=== PATIENT | female | born 1935 | race Caucasian/White ===

== ENCOUNTER 2017-10-29 16:28 | Emergency (ER) | payer OTHER, MEDICARE ==
[~2017-10-29] VITALS: Ht 162.6 cm; Wt 63.5 kg
[~2017-10-29 16:28] MED LIST: ALPRAZOLAM0.25 M1 PO; AMLODIPINE BESYL5 M1 PO; ATORVASTATIN CA20 MG PO; COREG12.5 M1 PO; COZAAR50 M1 PO; HYDRALAZINE HCL25 M1 PO; HYDRALAZINE HCL25 MG PO; HYDRALAZINE10 MG PO; LOSARTAN POTASS50 MG PO; METOPROLOL SUC100 M1 PO; MIRALAX17 G1 PO; ONDANSETRON ODT4 M1 PO; PROTONIX 40MG T40 MG PO; PROTONIX40 M3 PO; SODIUM CHLORIDE1 G2 PO; TIGAN100 MG/1 M PO
--- NOTE | 2017-10-29 16:53 | ED GENERAL ADULT ---
History of Present Illness General Chief Complaint: Dyspnea (COPD, CHF, Other) Stated Complaint: BIBA SOB/ANXIOUS Source: patient Exam Limitations: no limitations Vital Signs & Intake/Output Vital Signs & Intake/Output Vital Signs Date Time Temp Pulse Resp B/P B/P Pulse O2 O2 Flow FiO2 Mean Ox Delivery Rate 10/29 2127 97.2 62 20 167/62 97 Room Air 10/29 1927 97.8 60 20 174/74 97 Room Air 10/29 1829 97.7 60 16 180/84 97 Room Air 10/29 1630 97.9 59 18 169/83 97 Room Air Allergies Coded Allergies: No Known Allergies (04/04/16) Reconcile Medications Albuterol Sulfate (Ventolin Hfa) 90 MCG HFA.AER.AD 2 PUF INH Q4-6 PRN PRN SHORTNESS OF BREATH Alprazolam 0.25 MG TABLET 1 TAB PO DAILY NEEDED PRN ANXIETY (Reported) Amlodipine Besylate 5 MG TABLET 5 MG PO DAILY HTN Atorvastatin Calcium (Lipitor) 20 MG TAB 1 TAB PO DAILY CHOLESTEROL (Reported ) Azithromycin (Zithromax) 500 MG TABLET 1 TAB PO DAILY BRONCHITIS Benzonatate (Tessalon Perle) 100 MG CAPSULE 1 CAP PO TID PRN COUGH Fluticasone Propionate (Flonase Allergy Relief) 50 MCG/ACTUATION SPRAY.SUSP 2 SPRAY KARLA DAILY PRN CONGESTION Hydralazine HCl 25 MG TABLET 1 TAB PO BID HEART (Reported) Metoprolol Succinate (Metoprolol Succinate XL) [address] 1 TAB PO DAILY HEART (Reported) Pantoprazole Sodium (Protonix) 40 MG TAB 40 MG PO DAILY ACID REFLUX (Reported ) Polyethylene Glycol 3350 (Miralax) 17 GM POWD.PACK 1 PAC PO DAILY PRN CONSTIPATION dissolve in water Sodium Chloride 1 GM TABLET 1,000 MG PO BID Hyponatremia Review the Na level and consider to stop or continue depending on the level. While on the NaCl tablet BP needs to be monitored closely. Triage Note: PT BIBA FROM HOME C/C URI S/S AND "A FEW SECONDS" OF SOB. HX OF ANXIETY, STATES FELT SIMILAR. PATIENT SOUND CONGESTED. AFEBRILE. ADMITS SOME SUBJECTIVE CHILLS Triage Nurses Notes Reviewed? yes Onset: Gradual Duration: getting worse Timing: recent history Injury Environment: home Severity: moderate Severity Numbers: 5 HPI: Patient is an 82-year-old female with a past medical history of hypertension hyperlipidemia status post atrioventricular dual pacemaker, diverticulitis status post colostomy approximately 4 years ago, ovarian cancer status post surgical removal and chemotherapy at age 29, hyponatremia who presents emergency room brought in by ambulance for concerns of a four-day history of cough congestion and upper respiratory cold like symptoms however today symptoms worsen to where she began having shortness of breath approximately at 1300 while at rest patient then became excessively anxious symptoms do not resolve patient called EMS Patient denies any fevers chest pain arm pain jaw pain Complains of "upset stomach" denies any specific nausea or vomiting denies any leg swelling hemoptysis Brown productive cough noted (Aiden Brito) Past History Travel History Traveled to [place] past 21 day No Medical History Any Pertinent Medical History? 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 HYSTERECTOMY Psychosocial History Who do you live with Spouse Services at Home None What is your primary language Eritrean Tobacco Use: Quit >30 days ago Family History Family History, If Any: SISTER FH: cancer Hx Contributory? No (Aiden Brito) Review of Systems Review of Systems Constitutional: Reports: see HPI. Denies: chills, fever. EENTM: Reports: no symptoms, see HPI. Respiratory: Reports: see HPI, cough, short of breath, sputum production. Cardiovascular: Reports: see HPI. Denies: chest pain. GI: Reports: see HPI. Denies: abdominal pain. Genitourinary: Reports: no symptoms. Musculoskeletal: Reports: no symptoms. Skin: Reports: no symptoms. Neurological/Psychological: Reports: no symptoms. Hematologic/Endocrine: Reports: no symptoms. Immunologic/Allergic: Reports: no symptoms. All Other Systems: Reviewed and Negative (Aiden Brito) Physical Exam Physical Exam General Appearance: no apparent distress, alert, comfortable Head: atraumatic Eyes: Bilateral: normal appearance, PERRL, EOMI. Ears, Nose, Throat: normal pharynx, normal ENT inspection, hearing grossly normal Neck: normal inspection, supple Respiratory: normal breath sounds, chest non-tender, no respiratory distress Cardiovascular: regular rate/rhythm Peripheral Pulses: 2+ radial (R) Gastrointestinal: normal bowel sounds, soft, non-tender Back: normal inspection Extremities: normal inspection, normal capillary refill, normal range of motion, no edema Skin: intact Comments: Patient has scattered multiple patchy erythematous DRY scaly skin rashes to lower extremity back and abdomen Core Measures ACS in differential dx? Yes CVA/TIA Diagnosis: No Sepsis Present: No Sepsis Focused Exam Completed? No (Bonnie MALIK,Aiden) Progress Differential Diagnoses I considered the following diagnoses in my evaluation of the patient: [Pulmonary embolism influenza URI bronchitis pneumonia MII sepsis tinea corporis] Plan of Care: Orders Procedure Date/time Status TROPONIN LEVEL 10/29 2129 Complete EKG 10/29 2129 Active URINALYSIS 10/29 170 Complete LOWER RESPIRATORY CULTURE 10/29 1705 Active BLOOD CULTURE 10/29 170 Active TROPONIN LEVEL 10/29 1705 Complete LACTIC ACID 10/29 1705 Complete D-DIMER 10/29 1705 Complete COMPREHENSIVE METABOLIC PANEL 10/29 1705 Complete CBC WITHOUT DIFFERENTIAL 10/29 170 Complete B-TYPE NATRIURETIC PEP (BNP) 10/29 1705 Complete EKG 10/29 170 Active RAPID VIRAL INFLUENZA A 10/29 170 Complete Laboratory Tests 10/29/173: Troponin I < 0.01 10/29/17 2005: Lactic Acid Cancelled 10/29/17 1843: Urine Color YEL, Urine Clarity CLEAR, Urine pH 6.0, Ur Specific [place] 1.015, Urine Protein NEG, Urine Ketones NEG, Urine Nitrite NEG, Urine Bilirubin NEG, Urine Urobilinogen 0.2, Ur Leukocyte Esterase NEG, Ur Microscopic EXAM NOT REQUIRED, Urine Hemoglobin NEG, Urine Glucose NEG 10/29/17 1720: Anion Gap 11, Estimated GFR 43 L, BUN/Creatinine Ratio 10.0, Glucose 125 H, Lactic Acid 1.5, Calcium 10.0, Total Bilirubin 0.4, AST 17, ALT 21, Alkaline Phosphatase 98, Troponin I < 0.01, Oqb-B-Aibvyohzdjv Pept 3270 H, Total Protein 6.1 L, Albumin 3.2 L, Globulin 2.9, Albumin/Globulin Ratio 1.1, D-Dimer High Sensitivty 539 H, CBC w Diff NO MAN DIFF REQ, RBC 3.77 L, MCV 87.1, MCH 28.5, MCHC 32.7 L, RDW 15.6 H, MPV 6.9 L, Gran % 83.5 H, Lymphocytes % 11.4 L, Monocytes % 4.6, Eosinophils % 0.3, Basophils % 0.2, Absolute Granulocytes 8.9 H, Absolute Lymphocytes 1.2, Absolute Monocytes 0.5, Absolute Eosinophils 0, Absolute Basophils 0 Microbiology 10/29 1735 BLOOD: Blood Culture - RECD 10/29 1720 BLOOD: Blood Culture - RECD 10/29 1717 NASOPHARYN: Influenza Virus A & B Rapid Smear - COMP 10/29 1704 LOWER RESP: Respiratory Culture - ORD 10/29 1704 LOWER RESP: Gram Stain - ORD Patient on initial examination was resting comfortably but clear lungs auscultation Afebrile nontoxic-appearing Patient has concerns of skin findings of generalized lower extremity and trunk of tinea in which liver function tests were unremarkable patient was given one time dose of Diflucan 2000= Patient will receive second set troponin at 2130, IST set of EKG and troponin unremarkable CT scan angiogram currently is pending for evaluation and rule out PE DISCUSSED HAND OFF WITH DR SAHU Initial ED EK A-V PACED RHYTHM Hand-Off Endorsed To: Valerie KING,Jackson Woodward Endorsed Time: 2015 Pending: CT, labs (Bonnie MALIK,Aiden) Diagnostic Imaging: Viewed by Me: CT Scan. Discussed w/RAD: CT Scan. Radiology Impression: PATIENT: RO AVILA PRESENT AGE: 82 PATIENT ACCOUNT NO: [id number] : 34 LOCATION: [facility] ORDERING PHYSICIAN: Aiden MALIK SERVICE DATE: 10/29/17 EXAM TYPE: CAT - CTA CHEST-PULMONARY EMBOLISM EXAMINATION: CT ANGIOGRAM OF THE CHEST WITH AND WITHOUT CONTRAST (CT PULMONARY ANGIOGRAM FOR PE) CLINICAL INFORMATION: Reason for Study:
Presumptive Dx: SOB, ELEVATED DIMER
Signs Symptoms: RM 8
COMPARISON : Same day chest x-ray TECHNIQUE: Prior to contrast administration, noncontrast localization images were obtained. Subsequently, multidetector volumetric imaging was performed from the thoracic inlet to below the diaphragms following the administration of 75 mL Omnipaque 350 intravenous contrast. No contrast reaction reported. Sagittal, coronal, and MIP oblique sagittal reformatted images were obtained on the CT workstation, uploaded to PACS, and reviewed. Total exam dose-length product 332 mGy-cm. FINDINGS: QUALITY OF STUDY/CONTRAST BOLUS: Satisfactory PULMONARY ARTERIES: No central or segmental pulmonary emboli. THORACIC AORTA: The ascending thoracic aorta measures approximately 3.2 x 3.4 cm. The descending thoracic aorta at this level measures 2.3 x 2.6 cm. No dissection. LUNG: No focal consolidation, nodules or masses. Minimal dependent atelectasis. PLEURA: No pleural effusion or pneumothorax. MEDIASTINUM: The heart size is top normal to mildly enlarged. There is no pericardial effusion. Mild coronary artery calcification noted. There are enlarged mediastinal lymph nodes. An AP window lymph node measures 1.6 x 2.8 cm. A precarinal lymph node measures 1.5 x 2.1 cm. No evidence of septal bowing or right heart strain. CHEST WALL/ AXILLA: No axillary or internal mammary lymphadenopathy. OSSEOUS STRUCTURES: No acute or suspicious osseous abnormality. UPPER ABDOMEN: A small cystic structure is identified within the left lobe of the liver measuring 1.1 cm. No reflux of contrast into the hepatic veins to suggest elevated right heart pressures. IMPRESSION: 1. No pulmonary embolism. 2. No pneumonia or other acute intrapulmonary findings. Bibasilar atelectasis. 3. Abnormal mediastinal adenopathy. In addition to reactive adenopathy other etiologies such as inflammatory or malignant (lymphoma) causes could be considered. VTE: negative DICTATED BY: Phoebe Wolfe MD DATE/TIME DICTATED:10/29/172038 BAG MAKING MACHINE OPERATOR :KIKE DATE/TIME TRANSCRIBED:10/29/172038 CONFIDENTIAL, DO NOT COPY WITHOUT APPROPRIATE AUTHORIZATION. <Electronically signed in Other Vendor System> SIGNED BY: Phoebe Wolfe MD 10/29/172051 Repeat EKG: unchanged (Valerie KING,Jackson Woodward) Departure Departure Disposition: STILL A PATIENT Condition: Stable Clinical Impression Primary Impression: URI (upper respiratory infection) Secondary Impressions: Shortness of breath, Tinea Referrals: Essie KING,Martha Brink (PCP/Family) Additional Instructions: As discussed if symptoms worsen return to emergency room, Follow-up with your primary care doctor in 2 days if no better. Begin the prescription of azithromycin for the full course tests on process or cough Flonase for nasal congestion and a Ventolin inhaler for shortness of breath. PRESCRIPTIONS WAITING AT [facility] Departure Forms: Customer Survey General Discharge Information Prescriptions: Current Visit Scripts Azithromycin (Zithromax) 1 TAB PO DAILY #5 TAB Albuterol Sulfate (Ventolin Hfa) 2 PUF INH Q4-6 PRN PRN SHORTNESS OF BREATH #1 INHAL Benzonatate (Tessalon Perle) 1 CAP PO TID PRN COUGH #12 CAP Fluticasone Propionate (Flonase Allergy Relief) 2 SPRAY KARLA DAILY PRN CONGESTION #1 BOT (Aiden Brito) PA/GROUND NUCLEAR WEAPONS ASSEMBLY OFFICER Co-Sign Statement Statement: ED Attending supervision documentation- [X] I saw and evaluated the patient. I have also reviewed all the pertinent lab results and diagnostic results. I agree with the findings and the plan of care as documented in the PA's/GROUND NUCLEAR WEAPONS ASSEMBLY OFFICER's documentation. [X] I have reviewed the ED Record and agree with the PA's/GROUND NUCLEAR WEAPONS ASSEMBLY OFFICER's documentation. [] Additions or exceptions (if any) to the PAs/GROUND NUCLEAR WEAPONS ASSEMBLY OFFICER's note and plan are summarized below: [] (Valerie KING,Jackson Woodward) Critical Care Note Critical Care Note Critical Care Time: non-applicable (Aiden Brito)
[2017-10-29 17:50] LABS: ABSOLUTE BASOPHIL COUNT 0 /CUMM (0.0-0.2); ABSOLUTE EOSINOPHIL COUNT 0 /CUMM (0.0-0.7); ABSOLUTE GRANULOCYTE CT 8.9 /CUMM (1.4-6.5); ABSOLUTE LYMPH COUNT 1.2 /CUMM (1.2-3.4); ABSOLUTE MONOCYTE COUNT 0.5 /CUMM (0.10-0.60); BASOPHIL % 0.2 % (0.0-2.0); EOSINOPHIL % 0.3 % (0-5); GRANULOCYTE % 83.5 % (42.2-75.2); HEMATOCRIT 32.8 % (37-47); MEAN CORPUSCULAR HGB 28.5 PG (27.0-31.0); MEAN CORPUSCULAR HGB CONC 32.7 G/DL (33.0-37.0); MEAN CORPUSCULAR VOLUME 87.1 FL (81.0-99.0); MEAN PLATELET VOLUME 6.9 FL (7.4-10.4); PLATELET COUNT 369 /CUMM (130-400); RBC DISTRIBUTION WIDTH 15.6 % (11.5-14.5); RED BLOOD CELL CT 3.77 /CUMM (4.20-5.40)
[2017-10-29 18:03] LABS: WHITE BLOOD CELL COUNT 10.6 /CUMM (4.8-10.8)
[2017-10-29] MEDS ORDERED: ZITHROMAX500 M2 PO (20:15)
[2017-10-29] MEDS ORDERED: FLONASE ALLERG9.9 ML NAS (20:15)
[2017-10-29] MEDS ORDERED: TESSALON PERLE100 M1 PO (20:15)
[2017-10-29] MEDS ORDERED: VENTOLIN HFA18 GM INH (20:15)
--- NOTE | 2017-10-29 20:52 | CT SCAN REPORT ---
EXAMINATION: CT ANGIOGRAM OF THE CHEST WITH AND WITHOUT CONTRAST (CT PULMONARY ANGIOGRAM FOR PE) CLINICAL INFORMATION: Reason for Study:
Presumptive Dx: SOB, ELEVATED DIMER
Signs Symptoms: RM 8
COMPARISON: Same day chest x-ray TECHNIQUE: Prior to contrast administration, noncontrast localization images were obtained. Subsequently, multidetector volumetric imaging was performed from the thoracic inlet to below the diaphragms following the administration of 75 mL Omnipaque 350 intravenous contrast. No contrast reaction reported. Sagittal, coronal, and MIP oblique sagittal reformatted images were obtained on the CT workstation, uploaded to PACS, and reviewed. Total exam dose-length product 332 mGy-cm. FINDINGS: QUALITY OF STUDY/CONTRAST BOLUS: Satisfactory PULMONARY ARTERIES: No central or segmental pulmonary emboli. THORACIC AORTA: The ascending thoracic aorta measures approximately 3.2 x 3.4 cm. The descending thoracic aorta at this level measures 2.3 x 2.6 cm. No dissection. LUNG: No focal consolidation, nodules or masses. Minimal dependent atelectasis. PLEURA: No pleural effusion or pneumothorax. MEDIASTINUM: The heart size is top normal to mildly enlarged. There is no pericardial effusion. Mild coronary artery calcification noted. There are enlarged mediastinal lymph nodes. An AP window lymph node measures 1.6 x 2.8 cm. A precarinal lymph node measures 1.5 x 2.1 cm. No evidence of septal bowing or right heart strain. CHEST WALL/AXILLA: No axillary or internal mammary lymphadenopathy. OSSEOUS STRUCTURES: No acute or suspicious osseous abnormality. UPPER ABDOMEN: A small cystic structure is identified within the left lobe of the liver measuring 1.1 cm. No reflux of contrast into the hepatic veins to suggest elevated right heart pressures. IMPRESSION: 1. No pulmonary embolism. 2. No pneumonia or other acute intrapulmonary findings. Bibasilar atelectasis. 3. Abnormal mediastinal adenopathy. In addition to reactive adenopathy other etiologies such as inflammatory or malignant (lymphoma) causes could be considered. VTE: negative
[2017-10-29 23:10] VITALS: BP 145/63
== END 2017-10-29 23:11 ==
LOC: ERH 16:28
PROVIDERS: Physician Assistant
DX: J06.9 Acute upper respiratory infection, unspecified (principal); B35.9 Dermatophytosis, unspecified
CPT/HCPCS: 81003; 87040; 87070; 87804; 87804-59; 93005; 93010; J7040

== ENCOUNTER 2017-11-03 09:10 | Inpatient (IN) | payer OTHER, MEDICARE ==
[~2017-11-03] VITALS: Ht 162.6 cm; Wt 70.9 kg
[~2017-11-03 09:10] MED LIST changes: -ATORVASTATIN CA20 MG PO; +FLONASE ALLERG9.9 ML NAS; +LIPITOR20 M2 PO; -METOPROLOL SUC100 M1 PO; +METOPROLOL SUC100 M2 PO; -PROTONIX 40MG T40 MG PO; +TESSALON PERLE100 M1 PO; +VENTOLIN HFA18 GM INH; +ZITHROMAX500 M2 PO
--- NOTE | 2017-11-03 09:31 | ED GENERAL ADULT ---
History of Present Illness General Chief Complaint: General Adult Stated Complaint: WEAKNESS/DIZZINESS Source: patient, family, old records, EMS Exam Limitations: no limitations Vital Signs & Intake/Output Vital Signs & Intake/Output Vital Signs Date Time Temp Pulse Resp B/P B/P Pulse O2 O2 Flow FiO2 Mean Ox Delivery Rate 11/03 1149 97.2 60 18 160/82 98 11/03 1138 Room Air Room Air 11/03 0933 95.8 78 20 158/80 97 Room Air Allergies Coded Allergies: No Known Allergies (04/04/16) Reconcile Medications Amlodipine Besylate 5 MG TABLET 5 MG PO DAILY HTN Apixaban (Eliquis) 5 MG TABLET 1 TAB PO BID BLOOD THINNER (Reported) Atorvastatin Calcium (Lipitor) 20 MG TABLET 1 TAB PO QPM CHOLESTEROL ( Reported) Hydralazine HCl 25 MG TABLET 1 TAB PO BID HEART (Reported) Losartan Potassium 50 MG TABLET 1 TAB PO DAILY HEART (Reported) Metoprolol Succinate 100 MG TAB.ER.24H 1 TAB PO DAILY HEART (Reported) Pantoprazole Sodium (Protonix) 40 MG TABLET.DR 1 TAB PO DAILY ACID REFLUX ( Reported) Triage Nurses Notes Reviewed? yes HPI: Patient presents with increasing weakness, fatigue and anorexia. Patient was seen last week for similar complaints. At that time her workup was negative and the patient felt stable going home. Patient states that her symptoms have been worsening over the past few days. Patient denies any chest pain or shortness of breath. She denies any dyspnea on exertion. There is no orthopnea. There is no nausea or vomiting. She states that she just has no desire to eat. She denies any fevers or chills. There is no dysuria or hematuria. There is no urinary frequency. Past History Medical History Any Pertinent Medical History? 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 HYSTERECTOMY Psychosocial History Who do you live with Spouse Services at Home None What is your primary language Macedonian Tobacco Use: Never used ETOH Use: denies use Illicit Drug Use: denies illicit drug use Family History Family History, If Any: SISTER FH: cancer Hx Contributory? No Review of Systems Review of Systems Constitutional: Reports: see HPI, weakness. EENTM: Reports: no symptoms. Respiratory: Reports: no symptoms. Cardiovascular: Reports: no symptoms. GI: Reports: see HPI. Genitourinary: Reports: no symptoms. Musculoskeletal: Reports: no symptoms. Skin: Reports: no symptoms. Neurological/Psychological: Reports: no symptoms. Hematologic/Endocrine: Reports: no symptoms. Immunologic/Allergic: Reports: no symptoms. All Other Systems: Reviewed and Negative Physical Exam Physical Exam General Appearance: well developed/nourished, alert, awake, anxious, mild distress Head: atraumatic, normal appearance Eyes: Bilateral: PERRL, EOMI. Ears, Nose, Throat: normal pharynx, normal ENT inspection, moist mucus membranes Neck: normal inspection, supple, full range of motion, NO JVD Respiratory: normal breath sounds, chest non-tender, no respiratory distress, lungs clear Cardiovascular: regular rate/rhythm, normal peripheral pulses Gastrointestinal: normal bowel sounds, soft, non-tender, no organomegaly Back: normal inspection, normal range of motion Extremities: normal inspection, normal capillary refill, normal range of motion, no edema Neurologic/Psych: no motor/sensory deficits, awake, alert, oriented x 3, normal mood/affect Skin: intact, normal color, warm/dry Core Measures ACS in differential dx? No CVA/TIA Diagnosis: No Sepsis Present: No Sepsis Focused Exam Completed? No Progress Differential Diagnoses I considered the following diagnoses in my evaluation of the patient: [CHF, AMI, UTI, ELECTROLYTE ABNORMALITY] Plan of Care: Orders Procedure Date/time Status Heart Healthy Diet 11/03 L Complete Heart Healthy Diet 11/03 D Active Patient Data 11/03 1201 Active ED Holding Orders 11/03 1149 Active Admit to inpatient 11/03 1149 Active Vital Signs 11/03 1149 Active Code Status 11/03 1149 Active Intake & Output 11/03 1044 Active Telemetry/Financial Reporting Manager 11/03 0931 Active URINALYSIS 11/03 0931 Complete TROPONIN LEVEL 11/03 0931 Complete COMPREHENSIVE METABOLIC PANEL 11/03 0931 Complete CBC WITHOUT DIFFERENTIAL 11/03 09 Complete B-TYPE NATRIURETIC PEP (BNP) 11/03 0931 Complete EKG 11/03 0913 Active Current Medications Sig/Gildardo Start time Last Medication Dose Stop Time Status Admin Sodium Chloride 1,000 ML ONCE ONE 11/03 1000 AC 11/03 (Normal Saline 0.9%) 11/03 1759 1044 Laboratory Tests 11/03/17 1036: Anion Gap 10, Estimated GFR 43 L, BUN/Creatinine Ratio 10.8, Glucose 105 H, Calcium 10.0, Total Bilirubin 0.4, AST 15, ALT 20, Alkaline Phosphatase 117, Troponin I < 0.01, Ttg-A-Onuxsrslqoi Pept 1690 H, Total Protein 5.9 L, Albumin 3.1 L, Globulin 2.8, Albumin/Globulin Ratio 1.1, CBC w Diff NO MAN DIFF REQ, RBC 3.56 L, MCV 87.2, MCH 29.5, MCHC 33.9, RDW 15.2 H, MPV 6.2 L, Gran % 71.8 , Lymphocytes % 19.4 L, Monocytes % 6.9, Eosinophils % 1.6, Basophils % 0.3, Absolute Granulocytes 5.2, Absolute Lymphocytes 1.4, Absolute Monocytes 0.5, Absolute Eosinophils 0.1, Absolute Basophils 0 11/03/17 0950: Urine Color YEL, Urine Clarity CLEAR, Urine pH 6.5, Ur Specific [place] 1.010, Urine Protein NEG, Urine Ketones NEG, Urine Nitrite NEG, Urine Bilirubin NEG, Urine Urobilinogen 0.2, Ur Leukocyte Esterase NEG, Ur Microscopic EXAM NOT REQUIRED, Urine Hemoglobin NEG, Urine Glucose NEG Diagnostic Imaging: Viewed by Me: Radiology Read. Discussed w/RAD: Radiology Read. CXR Impression: PATIENT: RO AVILA PRESENT AGE: 82 PATIENT ACCOUNT NO: [id number] : 34 LOCATION: [facility] ORDERING PHYSICIAN: Jackson Padilla MD SERVICE DATE: 11/03/17 EXAM TYPE: RAD - XRY- PORTABLE CHEST XRAY EXAMINATION: XR PORTABLE CHEST CLINICAL INFORMATION: Pulmonary edema COMPARISON: 10/25/2017 TECHNIQUE: Portable frontal view of the chest was obtained. FINDINGS: Lung volumes are decreased from the prior study. There is hazy bibasilar opacity, likely atelectasis and superimposed soft tissues. No dense focal consolidation seen. There is bronchovascular crowding but no sammie pulmonary edema. No definite pleural effusion. No pneumothorax. Calcified, tortuous aorta. Normal heart size. There is S-shaped thoracolumbar scoliosis. There are degenerative changes of the bilateral shoulders. IMPRESSION : Low lung volumes with likely bibasilar atelectasis. There is slight prominence of the pulmonary vascularity, most likely bronchovascular crowding in the setting of low lung volumes. At worst there is pulmonary vascular congestion. No pulmonary edema. DICTATED BY: Dudley Leblanc MD DATE/TIME DICTATED:11/03/171026 GEOTECHNICAL FIELD TECHNICIAN:KIKE DATE/TIME TRANSCRIBED:11/03/171026 CONFIDENTIAL, DO NOT COPY WITHOUT APPROPRIATE AUTHORIZATION. <Electronically signed in Other Vendor System> SIGNED BY: Dudley Leblanc MD 11/03/17 1035 Initial ED EKG: pacemaker rhythm Prior EKG: unchanged Comments: Patient attempted to inability to the bathroom in the emergency department. Patient took approximately 2 steps before she lost her balance and almost fell required a max assist back to bed. She has been very high risk to be discharged at this time. Patient will be admitted to the hospital. Departure Departure Disposition: STILL A PATIENT Condition: Stable Clinical Impression Primary Impression: Multifactorial gait disorder Referrals: Essie KING,Martha Brink (PCP/Family) Departure Forms: Customer Survey General Discharge Information Admission Note Spoke With: Kelvin Campos MD Documentation of Exam: Documentation of any treatments & extenuating circumstances including Concerns Regarding Discharge (functional status, medication knowledge or non-compliance, living conditions, etc.) that warrant an admission rather than observation: [ ADMIT, PT EVALUATION AND TREATMENT, GENTLE HYDRATION, WILL MOST LIKELY REQUIRE STR.] Critical Care Note Critical Care Note Critical Care Time: non-applicable
[2017-11-03] MEDS ORDERED: LOSARTAN POTASS50 M1 PO (09:52)
[2017-11-03] MEDS ORDERED: ELIQUIS5 M1 PO (09:52)
--- NOTE | 2017-11-03 10:35 | RADIOLOGY REPORT ---
EXAMINATION: XR PORTABLE CHEST CLINICAL INFORMATION: Pulmonary edema COMPARISON: 10/25/2017 TECHNIQUE: Portable frontal view of the chest was obtained. FINDINGS: Lung volumes are decreased from the prior study. There is hazy bibasilar opacity, likely atelectasis and superimposed soft tissues. No dense focal consolidation seen. There is bronchovascular crowding but no sammie pulmonary edema. No definite pleural effusion. No pneumothorax. Calcified, tortuous aorta. Normal heart size. There is S-shaped thoracolumbar scoliosis. There are degenerative changes of the bilateral shoulders. IMPRESSION: Low lung volumes with likely bibasilar atelectasis. There is slight prominence of the pulmonary vascularity, most likely bronchovascular crowding in the setting of low lung volumes. At worst there is pulmonary vascular congestion. No pulmonary edema.
[2017-11-03 10:43] LABS: ABSOLUTE BASOPHIL COUNT 0 /CUMM (0.0-0.2); ABSOLUTE EOSINOPHIL COUNT 0.1 /CUMM (0.0-0.7); ABSOLUTE GRANULOCYTE CT 5.2 /CUMM (1.4-6.5); ABSOLUTE LYMPH COUNT 1.4 /CUMM (1.2-3.4); ABSOLUTE MONOCYTE COUNT 0.5 /CUMM (0.10-0.60); BASOPHIL % 0.3 % (0.0-2.0); EOSINOPHIL % 1.6 % (0-5); GRANULOCYTE % 71.8 % (42.2-75.2); MEAN CORPUSCULAR HGB 29.5 PG (27.0-31.0); MEAN CORPUSCULAR HGB CONC 33.9 G/DL (33.0-37.0); MEAN CORPUSCULAR VOLUME 87.2 FL (81.0-99.0); MEAN PLATELET VOLUME 6.2 FL (7.4-10.4); PLATELET COUNT 435 /CUMM (130-400); RBC DISTRIBUTION WIDTH 15.2 % (11.5-14.5); RED BLOOD CELL CT 3.56 /CUMM (4.20-5.40); WHITE BLOOD CELL COUNT 7.3 /CUMM (4.8-10.8)
--- NOTE | 2017-11-03 12:12 | History & Physical ---
Иван Barajas 11/03/17 1211: General Information and HPI MD Statement: I have seen and personally examined RO AVILA and documented this H&P. The patient is a 82 year old F who presented with a patient stated chief complaint of [weekness and poor oral intake ]. Source of Information: patient, old records Exam Limitations: no limitations History of Present Illness: Patient is a very pleasant 82-year-old female with history of hypertension, diverticulitis status post colostomy 2 years ago, ovarian cancer status post hysterectomy and chemotherapy at age 49, possible arrhythmia ?? S/P pacemaker placement, who presented at the emergency room after a fall secondary to weakness. Patient came to the emergency room about one week ago with nausea, vomiting, diarrhea and concomitant upper respiratory tract symptoms; stayed in ED for few hours and after fluid resuscitation was discharged home. According to patient her nausea and diarrhea improved, but she was left with constant bloating loss of appetite and poor oral intake for the past 10 days. for the past 3 days she felt weak, gait instability; had an episode of fall secondary to weakness this a.m.; denies any head trauma, loss of consciousness, chest pain, palpitation, +/- dizziness and feeling that she is going to pass out before fall. Lives alone; walking independently; takes care of herself independent. Compliant with her medication. Allergies/Medications Allergies: Coded Allergies: No Known Allergies (04/04/16) Home Med list Amlodipine Besylate 5 MG TABLET 5 MG PO DAILY HTN Apixaban (Eliquis) 5 MG TABLET 1 TAB PO BID BLOOD THINNER (Reported) Atorvastatin Calcium (Lipitor) 20 MG TABLET 1 TAB PO QPM CHOLESTEROL ( Reported) Hydralazine HCl 25 MG TABLET 1 TAB PO BID HEART (Reported) Losartan Potassium 50 MG TABLET 1 TAB PO DAILY HEART (Reported) Metoprolol Succinate 100 MG TAB.ER.24H 1 TAB PO DAILY HEART (Reported) Pantoprazole Sodium (Protonix) 40 MG TABLET.DR 1 TAB PO DAILY ACID REFLUX ( Reported) Compliance With Home Meds: GOOD Past History Travel History Traveled to [place] past 21 day No Medical History Neurological: NONE EENT: NONE Cardiovascular: hypertension, HLD atrial-ventricular dual pacemaker Respiratory: pneumonia Gastrointestinal: diverticulitis, GERD, status post colostomy Hepatic: NONE Renal: NONE Musculoskeletal: NONE Psychiatric: anxiety Endocrine: NONE Blood Disorders: NONE Cancer(s): ovarian cancer, status post removal and chemotherapy at age 29 ENGINE REPAIR SUPERVISOR/Reproductive: NONE Other Medical Hx: Psoriasis History of MRSA: No History of VRE: No History of CDIFF: No Surgical History Surgical History: permanent pacemaker LCW Ovarian cancer colostomy with reversal ? HYSTERECTOMY ECHO Results (as available) EF% 55 Past Family/Social History Family History Relations & Conditions if any SISTER FH: cancer Psychosocial History Who Do You Live With? spouse Services at Home: None Primary Language: [place] Citizen ETOH Use: denies use Illicit Drug Use: denies illicit drug use Living Will? no Functional Ability ADLs Independent: dressing, eating, toileting, bathing. Ambulation: independent IADLs Independent: shopping, housework, finances, food prep, telephone, transportation , medication admin. Review of Systems Review of Systems Constitutional: Reports: see HPI. GI: Reports: see HPI, bloating. Denies: constipation, diarrhea, distention, bowel incontinence, melena, nausea, bloody stool, changes in stool, vomiting, steatorrhea. Genitourinary: Reports: no symptoms. Musculoskeletal: Reports: no symptoms. Skin: Reports: no symptoms. All Other Systems: Reviewed and Negative Exam & Diagnostic Data Last 24 Hrs of Vital Signs/I&O Vital Signs Date Time Temp Pulse Resp B/P B/P Pulse O2 O2 Flow FiO2 Mean Ox Delivery Rate 11/03 1312 97.9 60 18 156/80 98 03/ 1149 97.2 60 18 160/82 98 11/03 1138 Room Air Room Air 11/03 0933 95.8 78 20 158/80 97 Room Air Intake & Output 11/03 1600 11/03 0800 11/03 0000 Intake Total 1000 Output Total Balance 1000 Intake, IV 1000 Patient 160 lb Weight Weight Reported by Patient Measurement Method Physical Exam General Appearance Alert, Oriented X3, Cooperative, No Acute Distress Skin No Rashes, No Breakdown, No Significant Lesion HEENT Atraumatic, PERRLA, EOMI, Mucous Membr. moist/pink Neck No JVD Lymphatic Axillary nl, Cervical nl Cardiovascular Normal S1, Normal S2, No Murmurs Lungs Clear to Auscultation, Normal Air Movement Abdomen Soft, No Tenderness, No Hepatospenomegaly Neurological Normal Speech, Cranial Nerves 3-12 NL, motor is normal upper extremities, lower extremities strengths 4 out of 5 Extremities No Clubbing, No Cyanosis, No Edema Vascular Normal Pulses, Pulses Symmetrical Body Front and Back (Adult) 1) Pacemaker Last 24 Hrs of Labs/Martin: Laboratory Tests 11/03/17 1036: Anion Gap 10, Estimated GFR 43 L, BUN/Creatinine Ratio 10.8, Glucose 105 H, Calcium 10.0, Total Bilirubin 0.4, AST 15, ALT 20, Alkaline Phosphatase 117, Troponin I < 0.01, Sku-T-Xmjxpavuaaj Pept 1690 H, Total Protein 5.9 L, Albumin 3.1 L, Globulin 2.8, Albumin/Globulin Ratio 1.1, CBC w Diff NO MAN DIFF REQ, RBC 3.56 L, MCV 87.2, MCH 29.5, MCHC 33.9, RDW 15.2 H, MPV 6.2 L, Gran % 71.8 , Lymphocytes % 19.4 L, Monocytes % 6.9, Eosinophils % 1.6, Basophils % 0.3, Absolute Granulocytes 5.2, Absolute Lymphocytes 1.4, Absolute Monocytes 0.5, Absolute Eosinophils 0.1, Absolute Basophils 0 11/03/17 0950: Urine Color YEL, Urine Clarity CLEAR, Urine pH 6.5, Ur Specific [place] 1.010, Urine Protein NEG, Urine Ketones NEG, Urine Nitrite NEG, Urine Bilirubin NEG, Urine Urobilinogen 0.2, Ur Leukocyte Esterase NEG, Ur Microscopic EXAM NOT REQUIRED, Urine Hemoglobin NEG, Urine Glucose NEG Diagnostic Data EKG Results Dual-chamber atrial sensing ventricular pacing Stable white QRS secondary to pacemaker No ST change Assessment/Plan Assessment: This is an 82-year-old very pleasant woman with multiple comorbidities was brought in for poor oral intake and weakness. Laboratory finding WBC 7.3; H&H: 10.5/31; 435 platelet number; sodium 134, potassium 4.7, BUN 13 creatinine 1.2 (stable CTD creatinine from April 2016 is 1.1). Urinalysis normal List of problems #1 poor oral intake #2 Fall : physical deconditioning, R/O cardiac arrhythmia and ACS #3 hypertension; uncontrolled blood pressure in the emergency room #4 hypercholesterolemia #5 anxiety #6 chronic hyponatremia Plan * admit to telemetry floor for continoue monitoring * Fall precaution * Pacemaker interogation- call metronics and place cardio consult * serial Trop and EKG R/O ACS * Cardiology consult * resume eliquis * resume metoprolol xl * PT evaluation * Continue gentle IV hydration * As needed Zofran * Resume all of her antihypertensive medication- hold amlodipine * Resume atorvastatin * Nutrition consult * Resume her Xanax * Needs 3 nights hospitalization plan to discharge to short-term rehabilitation for physical therapy; safe discharge plan DNRDNI DVT prophylaxis heparin Housekeeping orders As Ranked By This Provider Problem List: 1. Hypertension 2. Hyponatremia 3. Anxiety 4. Physical deconditioning Core Measures/Misc (05/21) Acute Coronary Syndrome ACS Diagnosis: No Congestive Heart Failure Congestive Heart Failure Diagnosis No Cerebrovascular Accident CVA/TIA Diagnosis: No VTE (View Protocol) VTE Risk Factors Age>40 No Mechanical VTE Prophylaxis d/t N/A MechProphylax Ordered No VTE Pharm Prophylaxis d/t NA PharmProphylax ordered Sepsis (View protocol) Sepsis Present: No Yue Sandy 11/03/17 1443: Attending MD Review Statement Attending Statement Attending MD Statement: examined this patient, discuss w/resident/PA/TELLER HEAD, agreed w/resident/PA/TELLER HEAD, discussed with family, reviewed EMR data (avail), discussed with nursing, discussed with case mgmt, reviewed images, amended to note Attending Assessment/Plan: Patient admit to telemetry monitoring. Patinet c/o dizziness near syncope with h /o afib s/p dual chamber pacemaker on anticoagulation with h/o ovarian cancer. Chest xray with pulmoanry congestion but no overt pulmonary edema. PCP is Dr Fountain. Obtain serial cardiac enzymes, ECHO as per cardiology, pacemaker interrogation, cardiology consult. gi/dvt prophyalxis DNR/DNI.
[2017-11-03 15:01] VITALS: BP 120/90
[2017-11-03 17:32] VITALS: BP 126/80
[2017-11-03 23:04] VITALS: BP 118/70
[2017-11-04 06:43] VITALS: BP 142/72
--- NOTE | 2017-11-04 08:22 | PN- Housestaff ---
Migel KING,Arcelia 11/04/17 0821: Subjective Follow-up For: # poor oral intake # Fall : physical deconditioning #hypertension #hypercholesterolemia #anxiety #chronic hyponatremia Subjective: Patient was seen and examined at bedside, she only reports exertional shortness of breath, denies chest pain, palpitation, fever, chills, nausea, vomiting, diarrhea or constipation Review of Systems Constitutional: Reports: see HPI. Objective Last 24 Hrs of Vital Signs/I&O Vital Signs Date Time Temp Pulse Resp B/P B/P Pulse O2 O2 Flow FiO2 Mean Ox Delivery Rate 11/04 0932 61 142/72 03/ 0931 61 142/72 03/03 0931 61 142/72 03/03 0643 98.5 60 20 142/72 97 03/02 2324 60 118/70 03/02 2304 97.7 60 18 118/70 95 Room Air 03/02 2034 Room Air 03/02 1746 96 Room Air 03/02 1732 98.0 60 20 126/80 97 Room Air 03/02 1535 97.8 64 18 120/90 03/02 1535 97.8 64 18 120/90 03/02 1534 97.8 60 18 120/90 03/02 1501 97.8 60 18 120/90 96 03/02 1353 Room Air Room Air 03/02 1312 97.9 60 18 156/80 98 03/02 1149 97.2 60 18 160/82 98 03/02 1138 Room Air Room Air Intake & Output / 1600 /03 0800 03/03 0000 Intake Total 840 645 Output Total 400 Balance 840 245 Intake, IV 600 225 Intake, Oral 240 420 Output, Urine 400 Patient 170 lb Weight Physical Exam General Appearance: Alert, Oriented X3, Cooperative, No Acute Distress HEENT: Atraumatic, PERRLA, EOMI, Mucous Membr. moist/pink Neck: Supple, No JVD Cardiovascular: Normal S1, Normal S2 Lungs: Clear to Auscultation Abdomen: Normal Bowel Sounds, Soft, No Tenderness Extremities: No Clubbing, No Cyanosis, No Edema Vascular: Normal Pulses Assessment/Plan Assessment: This is an 82-year-old female with PMH of hypertension, diverticulitis status post colostomy 2 years ago, ovarian cancer status post hysterectomy and chemotherapy at age 49, possible arrhythmia ?? S/P pacemaker placement, was brought in for poor oral intake and weakness. problems: # poor oral intake # Fall : physical deconditioning, R/O cardiac arrhythmia and ACS #hypertension; controlled # hypercholesterolemia # anxiety # chronic hyponatremia Plan * Continue to monitor on telemetry floor * Fall precaution * Pacemaker interogation-yesterday that he was not able to interrogate the pacemaker, with follow-up further with her credentials specialist for recommendation * serial Trop and EKG were negative which ruled out ACS * Cardiology consult was placed will follow up on the recommendation * continue Eliquis * Continue metoprolol xl * PT evaluation * Continue gentle IV hydration * As needed Zofran * Resume all of her antihypertensive medication- hold amlodipine * Resume atorvastatin * Nutrition consult * Resume her Xanax * Needs 3 nights hospitalization plan to discharge to short-term rehabilitation for physical therapy; safe discharge plan DNRDNI DVT prophylaxis heparin Problem List: 1. Physical deconditioning 2. Fall 3. Hyperlipidemia 4. Anxiety 5. Shortness of breath 6. Hyponatremia Pain Ratin Pain Location: N/A Pain Goal: Remain pain free Pain Plan: pathway Tomorrow's Labs & Rationales: cbc bep Kelvin Campos MD 11/04/17 1421: Attending MD Review Statement Attending Statement Attending MD Statement: examined this patient, discuss w/resident/PA/BOARD CERTIFIED FAMILY PHYSICIAN, agreed w/resident/PA/BOARD CERTIFIED FAMILY PHYSICIAN, reviewed EMR data (avail) Attending Assessment/Plan: Doing well, still weak, will continue to monitor, work with PT, DVT PPx
[2017-11-04 14:00] VITALS: BP 110/70
--- NOTE | 2017-11-04 20:31 | Cons- Cardiology ---
General Information and HPI Consulting Request Date of Consult: 11/04/17 Requested By: Kelvin Campos MD Reason for Consult: Possible syncope History of Present Illness: The patient is a pleasant 82-year-old female with history of hypertension, diverticulitis, ovarian cancer, and permanent pacemaker. She presented to the emergency department after a fall secondary to weakness. She had a prior emergency department visit 1 week ago for nausea, vomiting, and upper respiratory infection. She has continued to have nausea, diarrhea, and poor p.o. intake. For the past few days she has had weakness and gait instability. She had a fall secondary to weakness this morning. No head trauma. No loss of consciousness. No chest pain. No palpitations. She notes lightheadedness and dizziness. No diaphoresis. No orthopnea. Allergies/Medications Allergies: Coded Allergies: No Known Allergies (04/04/16) Home Med List: Amlodipine Besylate 5 MG TABLET 5 MG PO DAILY HTN Apixaban (Eliquis) 5 MG TABLET 1 TAB PO BID BLOOD THINNER (Reported) Atorvastatin Calcium (Lipitor) 20 MG TABLET 1 TAB PO QPM CHOLESTEROL ( Reported) Hydralazine HCl 25 MG TABLET 1 TAB PO BID HEART (Reported) Losartan Potassium 50 MG TABLET 1 TAB PO DAILY HEART (Reported) Metoprolol Succinate 100 MG TAB.ER.24H 1 TAB PO DAILY HEART (Reported) Pantoprazole Sodium (Protonix) 40 MG TABLET.DR 1 TAB PO DAILY ACID REFLUX ( Reported) Current Medications: Current Medications Sig/Gildardo Start time Last Medication Dose Route Stop Time Status Admin Acetaminophen 500 MG Q6P PRN 11/04 1600 AC 11/04 PO 1605 Apixaban 5 MG BID 11/03 1327 AC 11/04 PO 0931 Atorvastatin Calcium 20 MG QPM 11/03 2200 AC 11/03 PO 2324 Hydralazine HCl 25 MG BID 11/03 1327 AC 11/04 PO 0931 Losartan Potassium 50 MG DAILY 11/03 1328 AC 11/04 PO 0931 Metoprolol Succinate 100 MG DAILY 11/03 1328 AC 11/04 PO 0932 Omeprazole 40 MG DAILY AC 11/03 1328 AC 11/04 PO 0602 Sodium Chloride 1,000 ML Q13H 11/03 1330 AC 11/04 IV 2006 Review of Systems Review of Systems: No fever. No chills. No rash. No tremor. No hemoptysis. No hematemesis. All other systems were reviewed, and were noted to be negative. Past History Travel History Traveled to [place] past 21 day No Medical History Blood Transfusion Hx: No Neurological: NONE EENT: NONE Cardiovascular: hypertension, HLD atrial-ventricular dual pacemaker Respiratory: pneumonia Gastrointestinal: diverticulitis, GERD, status post colostomy Hepatic: NONE Renal: NONE Musculoskeletal: NONE Psychiatric: anxiety Endocrine: NONE Blood Disorders: NONE Cancer(s): ovarian cancer, status post removal and chemotherapy at age 29 CIRCUS ROUSTABOUT/Reproductive: NONE Other Medical Hx: Psoriasis Surgical History Surgical History: permanent pacemaker LCW Ovarian cancer colostomy with reversal ? HYSTERECTOMY Family History Relations & Conditions If Any: SISTER FH: cancer Psychosocial History Where Do You Live? Home Who Do You Live With? spouse Services at Home: None Primary Language: [place] Smoking Status: Never Smoked ETOH Use: denies use Illicit Drug Use: denies illicit drug use Living Will? no Functional Ability ADLs Independent: dressing, eating, toileting, bathing. Ambulation: independent IADLs Independent: shopping, housework, finances, food prep, telephone, transportation , medication admin. ECHO Results (as available) EF% 55 Exam & Diagnostic Data Vital Signs and I&O Vital Signs Date Time Temp Pulse Resp B/P B/P Pulse O2 O2 Flow FiO2 Mean Ox Delivery Rate 11/04 1400 99.1 66 20 110/70 95 /03 0932 61 142/72 0303 0931 61 142/72 03/03 0931 61 142/72 /03 0643 98.5 60 20 142/72 97 03/02 2324 60 118/70 03/02 2304 97.7 60 18 118/70 95 Room Air Intake & Output 11/04 1600 11/04 0800 03/03 0000 03/02 1600 / 0800 / 0000 Intake Total 1150 611 237 7377 Output Total 300 400 Balance 850 534 514 2819 Intake, IV 600 865 523 6777 Intake, Oral 550 240 420 200 Output, Urine 300 400 Patient 170 lb 170 lb Weight Weight Bed scale Measurement Method Physical Exam: Gen: The patient is in no acute distress HEENT: Normal nose, ears, and oropharynx. Pupils equal bilaterally. Conjunctiva normal. Neck: Supple with no JVD, no masses, and no thyromegaly Lungs: Clear to auscultation with normal respiratory effort Heart: RRR, S1, S2, no murmurs. No peripheral edema, 2+ pulses in the lower extremities bilaterally Abdomen: Soft, nontender, no masses. No hepatomegaly. No splenomegaly Extremities: No clubbing or cyanosis. Normal muscle strength in the upper and lower extremities Skin: Normal skin turgor with no skin ulcers or lesions noted. Neuro: Cranial nerves intact. Sensation intact Psych: Alert and oriented x 3 with appropriate affect Labs/Martin Results: Laboratory Tests 11/04 11/03 11/03 11/03 0640 2214 1538 1036 Chemistry Sodium (137 - 145 mmol/L) 134 L 134 L Potassium (3.5 - 5.1 mmol/L) 4.3 4.7 Chloride (98 - 107 mmol/L) 103 101 Carbon Dioxide (22 - 30 mmol/L) 23 23 Anion Gap (5 - 16) 7 10 BUN (7 - 17 mg/dL) 11 13 Creatinine (0.5 - 1.0 mg/dL) 1.2 H 1.2 H Estimated GFR (>60 ml/min) 43 L 43 L BUN/Creatinine Ratio (7 - 25 %) 9.2 10.8 Glucose (65 - 99 mg/dL) 105 H Calcium (8.4 - 10.2 mg/dL) 10.0 Total Bilirubin (0.2 - 1.3 mg/dL) 0.4 AST (14 - 36 U/L) 15 ALT (9 - 52 U/L) 20 Alkaline Phosphatase (<127 U/L) 117 Troponin I (< 0.11 ng/ml) < 0.01 < 0.01 < 0.01 [id number] Pept (<125 pg/mL) 1690 H Total Protein (6.3 - 8.2 g/dL) 5.9 L Albumin (3.5 - 5.0 g/dL) 3.1 L Globulin (1.9 - 4.2 gm/dL) 2.8 Albumin/Globulin Ratio (1.1 - 2.2 %) 1.1 Hematology CBC w Diff NO MAN DIFF REQ WBC (4.8 - 10.8 /CUMM) 7.3 RBC (4.20 - 5.40 /CUMM) 3.56 L Hgb (12.0 - 16.0 G/DL) 10.5 L Hct (37 - 47 %) 31.0 L MCV (81.0 - 99.0 FL) 87.2 MCH (27.0 - 31.0 PG) 29.5 MCHC (33.0 - 37.0 G/DL) 33.9 RDW (11.5 - 14.5 %) 15.2 H Plt Count (130 - 400 /CUMM) 435 H MPV (7.4 - 10.4 FL) 6.2 L Gran % (42.2 - 75.2 %) 71.8 Lymphocytes % (20.5 - 51.1 %) 19.4 L Monocytes % (1.7 - 9.3 %) 6.9 Eosinophils % (0 - 5 %) 1.6 Basophils % (0.0 - 2.0 %) 0.3 Absolute Granulocytes (1.4 - 6.5 /CUMM) 5.2 Absolute Lymphocytes (1.2 - 3.4 /CUMM) 1.4 Absolute Monocytes (0.10 - 0.60 /CUMM) 0.5 Absolute Eosinophils (0.0 - 0.7 /CUMM) 0.1 Absolute Basophils (0.0 - 0.2 /CUMM) 0 03/02 0950 Urines Urine Color (YEL,AMB,STR) YEL Urine Clarity (CLEAR) CLEAR Urine pH (5.0 - 8.0) 6.5 Ur Specific [place] (1.001 - 1.035) 1.010 Urine Protein (NEG,<30 MG/DL) NEG Urine Ketones (NEG) NEG Urine Nitrite (NEG) NEG Urine Bilirubin (NEG) NEG Urine Urobilinogen (0.1 - 1.0 EU/dl) 0.2 Ur Leukocyte Esterase (NEG) NEG Ur Microscopic EXAM NOT REQUIRED Urine Hemoglobin (NEG) NEG Urine Glucose (N MG/DL) NEG Diagnostic Data EKG Results EKG tracing is independently reviewed, and reveals AV sequential pacing at a rate of 6 CXR Results Chest x-ray 11/03/17 Low lung volumes with likely bibasilar atelectasis. There is slight prominence of the pulmonary vascularity, most likely bronchovascular crowding in the setting of low lung volumes. At worst there is pulmonary vascular congestion. No pulmonary edema. Assessment/Plan Assessment/Plan A 2-year-old female with permanent pacemaker presenting after a fall with recent lightheadedness, dizziness, and presyncope. The clinical history suggests volume depletion secondary to vomiting and diarrhea. Myocardial infarctions been ruled out with negative troponin 3. ProBNP is below her baseline. Recommendations: * Continue usual cardiac medications * Check orthostatics * Echocardiogram * Interrogate pacemaker Consult Acknowledgment - Thank you for your consult request.
[2017-11-04 22:29] VITALS: BP 112/80
[2017-11-05 06:19] VITALS: BP 138/86
--- NOTE | 2017-11-05 08:22 | PN- Housestaff ---
Estevan Van 11/05/17 0821: Subjective Follow-up For: Fall Subjective: No complaints or acute events overnight Review of Systems Constitutional: Reports: see HPI. Objective Last 24 Hrs of Vital Signs/I&O Vital Signs Date Time Temp Pulse Resp B/P B/P Pulse O2 O2 Flow FiO2 Mean Ox Delivery Rate 11/05 0837 60 138/86 / 0837 60 138/86 11/05 0837 60 138/86 / 0619 98.6 60 18 138/86 97 Room Air 11/04 2229 98.9 60 20 112/80 95 Room Air 11/04 2133 60 112/64 11/04 2040 Room Air Intake & Output 11/05 1600 11/05 0800 11/05 0000 Intake Total 900 390 Output Total 450 Balance 450 390 Intake, IV 600 150 Intake, Oral 300 240 Output, Urine 450 Physical Exam General Appearance: Alert, Oriented X3, Cooperative, No Acute Distress Cardiovascular: 09/09 systolic murmur Lungs: Clear to Auscultation, Normal Air Movement Extremities: No Edema Current Medications: Current Medications Sig/Gildardo Start time Last Medication Dose Route Stop Time Status Admin Acetaminophen 500 MG Q6P PRN 11/04 1600 AC 11/04 PO 1605 Acetaminophen 650 MG .STK-MED ONE 11/04 1559 DC PO 11/04 1600 Apixaban 5 MG BID 11/03 1327 AC 11/05 PO 0837 Atorvastatin Calcium 20 MG QPM 11/03 2200 AC 11/04 PO 2133 Hydralazine HCl 25 MG BID 11/03 1327 AC 11/05 PO 0837 Losartan Potassium 50 MG DAILY 11/03 1328 AC 11/05 PO 0837 Metoprolol Succinate 100 MG DAILY 11/03 1328 AC 11/05 PO 0837 Omeprazole 40 MG DAILY AC 11/03 1328 AC 11/05 PO 0625 Sodium Chloride 1,000 ML Q13H 11/03 1330 AC 11/04 IV 2006 Last 24 Hrs of Lab/Martin Results Last 24 Hrs of Labs/Mics: Laboratory Tests 11/05/17 0657: Anion Gap 8, Estimated GFR 47 L, BUN/Creatinine Ratio 10.9, CBC w Diff NO MAN DIFF REQ, RBC 3.37 L, MCV 87.8, MCH 29.3, MCHC 33.3, RDW 15.7 H, MPV 6.7 L, Gran % 62.5, Lymphocytes % 23.6, Monocytes % 11.1 H, Eosinophils % 2.4, Basophils % 0.4, Absolute Granulocytes 4.2, Absolute Lymphocytes 1.6, Absolute Monocytes 0.7 H, Absolute Eosinophils 0.2, Absolute Basophils 0 Assessment/Plan Assessment: 82-year-old female with PMH of hypertension, diverticulitis status post colostomy 2 years ago, ovarian cancer status post hysterectomy and chemotherapy at age 49, possible arrhythmia ?? S/P pacemaker placement, was brought in for poor oral intake and weakness. Problem list: Fall Weakness Plan: * Patient's PM could not be interrogated this patient has a [employer] and our equipment is [employer] * Urology recommendations appreciated * Cardiology recommendations appreciated * Orthostats * ECHO to rule out SHD and/or RMWA * Monitor sodium and renal function Problem List: 1. Fall Pain Ratin Pain Location: NA Pain Goal: Remain pain free Pain Plan: NA Tomorrow's Labs & Rationales: BEP for sodium and renal function Kelvin Campos MD 11/05/17 1337: Attending MD Review Statement Attending Statement Attending MD Statement: examined this patient, discuss w/resident/PA/TANK TRUCK LOADER, agreed w/resident/PA/TANK TRUCK LOADER, reviewed EMR data (avail) Attending Assessment/Plan: Doing well, still weak, will continue to monitor, follow cardiology recommendations, pacemaker interrogation, work with PT, DVT PPx
[2017-11-05 08:44] LABS: ABSOLUTE BASOPHIL COUNT 0 /CUMM (0.0-0.2); ABSOLUTE EOSINOPHIL COUNT 0.2 /CUMM (0.0-0.7); ABSOLUTE GRANULOCYTE CT 4.2 /CUMM (1.4-6.5); ABSOLUTE LYMPH COUNT 1.6 /CUMM (1.2-3.4); ABSOLUTE MONOCYTE COUNT 0.7 /CUMM (0.10-0.60); BASOPHIL % 0.4 % (0.0-2.0); EOSINOPHIL % 2.4 % (0-5); GRANULOCYTE % 62.5 % (42.2-75.2); HEMATOCRIT 29.6 % (37-47); MEAN CORPUSCULAR HGB 29.3 PG (27.0-31.0); MEAN CORPUSCULAR HGB CONC 33.3 G/DL (33.0-37.0); MEAN CORPUSCULAR VOLUME 87.8 FL (81.0-99.0); MEAN PLATELET VOLUME 6.7 FL (7.4-10.4); PLATELET COUNT 391 /CUMM (130-400); RBC DISTRIBUTION WIDTH 15.7 % (11.5-14.5); RED BLOOD CELL CT 3.37 /CUMM (4.20-5.40); WHITE BLOOD CELL COUNT 6.7 /CUMM (4.8-10.8)
[2017-11-05 14:00] VITALS: BP 130/76
--- NOTE | 2017-11-05 14:39 | PN- Cardiology ---
Subjective Subjective: The patient reports that she is feeling well. No chest pain. No palpitations. No diaphoresis. No nausea or vomiting Objective Vital Signs and I&Os Vital Signs Date Time Temp Pulse Resp B/P B/P Pulse O2 O2 Flow FiO2 Mean Ox Delivery Rate 11/05 0837 60 138/86 / 0837 60 138/86 / 0837 60 138/86 / 0619 98.6 60 18 138/86 97 Room Air 11/04 2229 98.9 60 20 112/80 95 Room Air 11/04 2133 60 112/64 11/04 2040 Room Air Intake & Output 11/05 1600 11/05 0800 11/05 0000 11/04 1600 11/04 0811/04 0000 Intake Total 798 213 3278 840 645 Output Total 450 300 400 Balance 450 390 850 840 245 Intake, IV 600 150 600 600 225 Intake, Oral 300 240 550 240 420 Output, Urine 450 300 400 Patient 170 lb Weight Physical Exam: Gen: The patient is in no acute distress HEENT: Normal nose, ears, and oropharynx. Pupils equal bilaterally. Conjunctiva normal. Neck: Supple with no JVD, no masses, and no thyromegaly Lungs: Clear to auscultation with normal respiratory effort Heart: RRR, S1, S2, no murmurs. No peripheral edema, 2+ pulses in the lower extremities bilaterally Abdomen: Soft, nontender, no masses. No hepatomegaly. No splenomegaly Extremities: No clubbing or cyanosis. Normal muscle strength in the upper and lower extremities Skin: Normal skin turgor with no skin ulcers or lesions noted. Neuro: Cranial nerves intact. Sensation intact Current Medications: Current Medications Sig/Gildardo Start time Last Medication Dose Route Stop Time Status Admin Acetaminophen 500 MG Q6P PRN 11/04 1600 AC 11/04 PO 1605 Acetaminophen 650 MG .STK-MED ONE 11/04 1559 DC PO 11/04 1600 Apixaban 5 MG BID 11/03 1327 AC 11/05 PO 0837 Atorvastatin Calcium 20 MG QPM 11/03 2200 AC 11/04 PO 2133 Docusate Sodium 100 MG DAILY NEEDED PRN 11/05 1100 AC 11/05 PO 1232 Hydralazine HCl 25 MG BID 11/03 1327 AC 11/05 PO 0837 Losartan Potassium 50 MG DAILY 11/03 1328 AC 11/05 PO 0837 Metoprolol Succinate 100 MG DAILY 11/03 1328 AC 11/05 PO 0837 Omeprazole 40 MG DAILY AC 11/03 1328 AC 11/05 PO 0625 Senna 187 MG AT BEDTIME 11/05 2200 AC PO Sodium Chloride 1,000 ML Q13H 11/03 1330 AC 11/05 IV 1227 Results Last 48 Hrs of Labs/Mics: Laboratory Tests 11/05/17 0657: Anion Gap 8, Estimated GFR 47 L, BUN/Creatinine Ratio 10.9, CBC w Diff NO MAN DIFF REQ, RBC 3.37 L, MCV 87.8, MCH 29.3, MCHC 33.3, RDW 15.7 H, MPV 6.7 L, Gran % 62.5, Lymphocytes % 23.6, Monocytes % 11.1 H, Eosinophils % 2.4, Basophils % 0.4, Absolute Granulocytes 4.2, Absolute Lymphocytes 1.6, Absolute Monocytes 0.7 H, Absolute Eosinophils 0.2, Absolute Basophils 0 11/04/17 0640: Anion Gap 7, Estimated GFR 43 L, BUN/Creatinine Ratio 9.2 11/03/17 2214: Troponin I < 0.01 11/03/17 1538: Troponin I < 0.01 Assessment/Plan Assessment/Plan Assessment: 1. Permanent pacemaker, [employer] 2. Status post fall with presyncope, likely secondary to volume depletion. Not orthostatic Plan: * Continue cardiac medications * Patient is awaiting short-term rehab placement * Echocardiogram pending * Pacemaker to be interrogated Continue telemetry? Yes
[2017-11-05 22:23] VITALS: BP 132/90
[2017-11-06 06:41] VITALS: BP 154/82
--- NOTE | 2017-11-06 07:29 | PN- Housestaff ---
Estevan Van 11/06/17 0729: Subjective Follow-up For: Fall secondary to weakness Tele-Events Since Last Visit: S-pacing HR 60 Subjective: Patient reports she is in a depressed mood today. She would like to ambulate more because she has not left her room since admission. No acute events overnight Review of Systems Constitutional: Reports: see HPI. Objective Last 24 Hrs of Vital Signs/I&O Vital Signs Date Time Temp Pulse Resp B/P B/P Pulse O2 O2 Flow FiO2 Mean Ox Delivery Rate 11/06 1049 Room Air Room Air / 0852 6 154/82 / 0852 66 154/82 / 0852 66 154/85 /05 0811 Room Air Room Air / 0800 98 Room Air / 0641 98.1 60 18 154/82 98 Room Air / 2223 98.7 60 20 132/90 97 Room Air / 2105 64 132/90 /04 1400 97.8 60 20 130/76 95 Intake & Output 11/06 1600 11/06 0800 11/06 0000 Intake Total 720 420 Output Total Balance 720 420 Intake, IV 600 300 Intake, Oral 120 120 Patient 157 lb Weight Weight Bed scale Measurement Method Physical Exam General Appearance: Alert, Oriented X3, Cooperative Cardiovascular: 09/09 systolic murmur Lungs: Clear to Auscultation, Normal Air Movement Abdomen: Normal Bowel Sounds, Soft, No Tenderness Extremities: No Edema Current Medications: Current Medications Sig/Gildardo Start time Last Medication Dose Route Stop Time Status Admin Acetaminophen 650 MG ONCE ONE 11/05 2114 DC 11/05 PO 11/06 2115 210 Acetaminophen 500 MG Q6P PRN 11/04 1600 AC 11/05 PO 1634 Apixaban 5 MG BID 11/03 1327 AC 11/06 PO 0852 Atorvastatin Calcium 20 MG QPM 11/03 2200 AC 11/05 PO 2105 Docusate Sodium 100 MG DAILY NEEDED PRN 11/05 1100 AC 11/05 PO 1232 Hydralazine HCl 25 MG BID 11/03 1327 AC 11/06 PO 0852 Losartan Potassium 50 MG DAILY 11/03 1328 AC 11/06 PO 0852 Metoprolol Succinate 100 MG DAILY 11/03 1328 AC 11/06 PO 0852 Omeprazole 40 MG DAILY AC 11/03 1328 AC 11/06 PO 0603 Senna 187 MG AT BEDTIME 11/05 2200 AC 11/05 PO 2105 Sodium Chloride 1,000 ML Q13H 11/03 1330 DC 11/06 IV 0249 Assessment/Plan Assessment: Ms. 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 Terrance Segura from [place], was brought in for poor oral intake and weakness. Problem list: Fall Weakness Dehydration Plan: * Patient's PM could not be interrogated because patient has a [employer] and our equipment is [employer]. We have contacted [employer] and a branch sales and service representative said they will be in today to interrogate and will leave a copy of the report in patient's chart * Spoke with Dr. Fountain in regards to the patient's anticoagulation, she reports patient has a history of paroxysmal atrial fibrillation * Cardiology recommendations appreciated * Orthostats negative 11/05/17 * ECHO to rule out SHD and/or RMWA pending * Discontinue IVF * Patient willl go to [facility] upon discharge CODE: DNR/DNI Problem List: 1. Fall Pain Ratin Pain Location: NA Pain Goal: Remain pain free Pain Plan: NA Tomorrow's Labs & Rationales: None Richi Curiel 11/06/17 1512: Attending MD Review Statement Attending Statement Attending MD Statement: examined this patient, discuss w/resident/PA/COMPRESSOR STATION CHIEF ENGINEER, agreed w/resident/PA/COMPRESSOR STATION CHIEF ENGINEER, reviewed EMR data (avail), discussed with nursing, discussed with case mgmt Attending Assessment/Plan: pt will be dced to [facility] today after pacemaker interrogation is complete and ok. please see the joao beauchamp for more details.
--- NOTE | 2017-11-06 10:50 | Patient Discharge Instructions ---
Discharge Instructions General Discharge Information You were seen/treated for: Fall secondary to weakness You had these procedures: none Special Instructions: Follow up with your PCP within 1-2 weeks after discharge Follow up with the Doctor Of Optometry within 1 week after discharge Diet Continue normal diet: Yes Activity Other activity limits: As tolerated Acute Coronary Syndrome Inclusion Criteria At DC or during hospital stay patient has or had the following: ACS DIAGNOSIS No Discharge Core Measures Meds if any: Prescribed or Continued at Discharge Meds if any: NOT Prescribed or Continued at Discharge Congestive Heart Failure Inclusion Criteria At DC or during hospital stay patient has or had the following: CHF DIAGNOSIS No Discharge Core Measures Meds if any: Prescribed or Continued at Discharge Meds if any: NOT Prescribed or Continued at Discharge Cerebrovascular accident Inclusion Criteria At DC or during hospital stay patient has or had the following: CVA/TIA Diagnosis No Discharge Core Measures Meds if any: Prescribed or Continued at Discharge Meds if any: NOT Prescribed or Continued at Discharge Venous thromboembolism Inclusion Criteria VTE Diagnosis No VTE Type NONE VTE Confirmed by (Test) NONE Discharge Core Measures - Per Current guidelines, there needs to be overlap - treatment for the first 5 days of Warfarin therapy. - If discharged on Warfarin prior to 5 days of - overlap therapy, the patient will need to be - assessed for post discharge needs including - *Post discharge parental anticoagulation - *Warfarin and/or parental anticoagulation education - *Follow up date to check INR post discharge At least 5 days overlap therapy as Inpatient No Meds if any: Prescribed or Continued at Discharge Note: Overlap Therapy is Warfarin and Anticoagulant Meds if any: NOT Prescribed or Continued at Discharge
--- NOTE | 2017-11-06 12:31 | ECHOCARDIOGRAM REPORT ---
RO AVILA Age: 82 : 1935 Gender: F Exam Date: 11/05/2017 13:45 Exam Location: [address] Ht (in): 64 Wt (lb): 170 BSA: 1.89 BP: 138 / 86 Ordering Physician: Deb Grewal MD Referring Physician: Manuel Romero MD Technologist: Saundra Campbell [facility] Room Number: [id number] Indications: HYPERTENSION Rhythm: Technical Quality: FINDINGS Left Ventricle Normal size left ventricle. Mild concentric left ventricular hypertrophy. Left ventricular ejection fraction is estimated at >60%. Abnormal relaxation filling pattern of the left ventricle for age (stage 1 diastolic dysfunction). Normal left ventricular wall motion. Right Ventricle Normal right ventricular size and function. Catheter/pacemaker wire in the right ventricular cavity. Right Atrium Normal right atrial size. Left Atrium Normal left atrial size. Mitral Valve Mitral valve thickened. Mild mitral annular calcification. Trace mitral regurgitation. Aortic Valve Diffuse thickening (sclerosis) of the aortic valve cusps without reduced excursion. No aortic stenosis. No aortic regurgitation. Tricuspid Valve Tricuspid valve not well visualized, grossly normal. Mild tricuspid regurgitation. No evidence of pulmonary hypertension. Pulmonic Valve Pulmonic valve not well visualized, grossly normal. Trace pulmonic regurgitation. Pericardium No pericardial effusion. Great Vessels Normal size aortic root. CONCLUSIONS Normal size left ventricle. Mild concentric left ventricular hypertrophy. Left ventricular ejection fraction is estimated at >60%. Abnormal relaxation filling pattern of the left ventricle for age (stage 1 diastolic dysfunction). Catheter/pacemaker wire in the right ventricular cavity. Trace mitral regurgitation. Mild tricuspid regurgitation. Trace pulmonic regurgitation. Manuel Romero M.D. (Electronically Signed) Final Date: 06 November 2017 12:30 MEASUREMENTS (Male / Female) Normal Values 2D ECHO LV Diastolic Diameter PLAX 2.9 cm 4.2 - 5.9 / 3.9 - 5.3 cm LV Systolic Diameter PLAX 2.0 cm 2.1 - 4.0 cm LV Fractional Shortening PLAX 31.0 % 25 - 46 % LV Ejection Fraction 2D Teich 60.5 % IVS Diastolic Thickness 1.4 cm LVPW Diastolic Thickness 1.3 cm LV Relative Wall Thickness 0.9 RV Internal Dim ED PLAX 3.5 cm 1.9 - 3.8 cm LVOT Diameter 1.8 cm Aortic Root Diameter 3.3 cm LA Systolic Diameter LX 3.5 cm 3.0 - 4.0 / 2.7 - 3.8 cm LA Volume 24.0 cm 18 - 58 / 22 - 52 cm Ascending Aorta Diameter 3.3 cm DOPPLER AV Peak Velocity 201.0 cm/s AV Peak Gradient 16.2 mmHg AV Mean Velocity 126.0 cm/s AV Mean Gradient 8.0 mmHg AV Velocity Time Integral 46.2 cm LVOT Peak Velocity 118.0 cm/s LVOT Peak Gradient 5.6 mmHg LVOT Mean Velocity 89.0 cm/s LVOT Mean Gradient 3.0 mmHg LVOT Velocity Time Integral 26.6 cm LVOT Stroke Volume 67.7 cm AV Area Cont Eq vti 1.5 cm AV Area Cont Eq pk 1.5 cm MV Peak Velocity 107.0 cm/s MV Peak Gradient 4.6 mmHg MV Mean Velocity 64.2 cm/s MV Mean Gradient 2.0 mmHg Mitral E Point Velocity 66.6 cm/s Mitral A Point Velocity 107.0 cm/s Mitral E to A Ratio 0.6 MV PHT Velocity 80.8 cm/s MV Deceleration [place] 156.0 cm/s MV Pressure Half Time 155.4 ms MV Area PHT 1.4 cm MV Deceleration Time 433.0 ms TR Peak Velocity 224.0 cm/s TR Peak Gradient 20.1 mmHg Right Atrial Pressure 5.0 mmHg Pulmonary Artery Systolic Pressu 25.1 mmHg Right Ventricular Systolic Press 25.1 mmHg PV Peak Velocity 135.0 cm/s PV Peak Gradient 7.3 mmHg PV Mean Velocity 82.7 cm/s PV Mean Gradient 3.0 mmHg PV Velocity Time Integral 26.2 cm LV E' Lateral Velocity 5.7 cm/s Mitral E to LV E' Lateral Ratio 11.7 LV E' Septal Velocity 4.3 cm/s Mitral E to LV E' Septal Ratio 15.4
--- NOTE | 2017-11-06 13:18 | Discharge Summary ---
Visit Information Visit Dates Admission Date: 11/03/17 Discharge Date: 11/07/2017 Hospital Course Course Attending Physician: Veena KING,Richi Hanson Primary Care Physician: Essie KING,Martha Brink Hospital Course: Patient is a very pleasant 82-year-old female with history of hypertension, diverticulitis status post colostomy 2 years ago, ovarian cancer status post hysterectomy and chemotherapy at age 49,bradycardia S/P pacemaker placement, who presented at the emergency room after a fall secondary to weakness. ED course - Vital sign -temperature 97.2, pulse 78, respiratory 20, blood pressure 158/80, SPO2 97% on room air. Blood workup -hemoglobin 10.5, hematocrit 31, platelet count 435, sodium 134, creatinine 1.2, serial troponins were less than 0.01, urine analysis was normal. EKG - Paced rhythum, wide QRS complex CXR -Low lung volumes with likely bibasilar atelectasis, increased pulmonary vascular congestion. No pulmonary edema. Unwitnessed fall secondary to generalized weakness, volume depletion- We admitted the patient to telemetry. Orthostatic vitals were negative (blood pressure on lying 140/60, sitting 140/60, standing 130/70).Serial troponins were negative.Blood workup showed anemia and hyponatremia.We advised fo normal salt intake.We will obtain cardiology consult advised for echocardiogram. Echo showed a stage I diastolic dysfunction with ejection fraction of more than 60%, mild left ventricular hypertrophy.We did interrogated the pacemaker,which was functioning normally with no significant arrhythmiasis. We advised to increase her fluid intake and take all fall precautions. She need to follow-up with her primary care provider within a week of discharge or as needed. Chronic medical condition -hypertension, hyperlipidemia status post pacemaker We continued on home medication as before. Allergies: Coded Allergies: No Known Allergies (04/04/16) Pertinent Lab Results: 11/05/17 ECHOCARDIOGRAM CONCLUSIONS Normal size left ventricle. Mild concentric left ventricular hypertrophy. Left ventricular ejection fraction is estimated at >60%. Abnormal relaxation filling pattern of the left ventricle for age (stage 1 diastolic dysfunction). Catheter/pacemaker wire in the right ventricular cavity. Trace mitral regurgitation. Mild tricuspid regurgitation. Trace pulmonic regurgitation. 11/03/17 XRY-PORTABLE CHEST XRAY FINDINGS: Lung volumes are decreased from the prior study. There is hazy bibasilar opacity, likely atelectasis and superimposed soft tissues. No dense focal consolidation seen. There is bronchovascular crowding but no sammie pulmonary edema. No definite pleural effusion. No pneumothorax. Calcified, tortuous aorta. Normal heart size. There is S-shaped thoracolumbar scoliosis. There are degenerative changes of the bilateral shoulders. IMPRESSION: Low lung volumes with likely bibasilar atelectasis. There is slight prominence of the pulmonary vascularity, most likely bronchovascular crowding in the setting of low lung volumes. At worst there is pulmonary vascular congestion. No pulmonary edema. Disposition Summary Disposition Principal Diagnosis: Unwitnessed fall secondary to generalized weakness, volume depletion (We did interrogated the pacemaker,which was functioning normally with no significant arrhythmiasis.) Additional Diagnosis: Hypertension, Diverticulitis status post colostomy 2 years ago, Ovarian cancer status post hysterectomy and chemotherapy at age 49, Bradycardia S/P pacemaker placement Discharge Disposition: SNF Discharge Instructions General Discharge Information Code Status: Do Not Resucitate/Intubat Patient's Diet: Heart healthy Diet Patient's Activity: as tolerated, take all fall precautions Follow-Up Instructions/Appts: Please follow-up with your PCP within a week of discharge Please follow-up with your car lubricator as needed Please take the medication as advised Please take all fall precaution Medications at Discharge Discharge Medications: Continue taking these medications: Metoprolol Succinate (Metoprolol Succinate) 100 MG TAB.ER.24H 1 Tablet ORAL DAILY Comments: Last Taken: 11/07/17 Time: 9:43 AM Atorvastatin Calcium (Lipitor) 20 MG TABLET 1 Tablet ORAL Every night Comments: Last Taken: 11/06/17 Time: 10:37 PM Pantoprazole Sodium (Protonix) 40 MG TABLET.DR 1 Tablet ORAL DAILY Comments: Last Taken: 11/07/17 Time: 6:36 AM Hydralazine HCl (Hydralazine HCl) 25 MG TABLET 1 Tablet ORAL TWICE DAILY Comments: Last Taken: 11/07/17 Time: 9:43 AM Amlodipine Besylate (Amlodipine Besylate) 5 MG TABLET 5 Milligram ORAL DAILY Days = 30 Comments: NOT GIVEN IN HOSPITAL Losartan Potassium (Losartan Potassium) 50 MG TABLET 1 Tablet ORAL DAILY Qty = 90 Comments: Last Taken: 11/07/17 Time: 9:43 AM Apixaban (Eliquis) 5 MG TABLET 1 Tablet ORAL TWICE DAILY Qty = 60 Comments: Last Taken: 11/07/17 Time: 9:43 AM Copies To: Essie KING,Martha Brink Attending MD Review Statement Documenting Attending: Richi Curiel MD
[2017-11-06 14:09] VITALS: BP 124/62
--- NOTE | 2017-11-06 17:56 | PN- Cardiology ---
Subjective Subjective: Feeling well. No chest pain. No shortness of breath. No diaphoresis. No lightheadedness or dizziness. Pacemaker interrogation has been completed. The pacemaker is functioning normally with no significant arrhythmias noted. Objective Vital Signs and I&Os Vital Signs Date Time Temp Pulse Resp B/P B/P Pulse O2 O2 Flow FiO2 Mean Ox Delivery Rate 11/06 1600 97 Room Air 11/06 1409 97.9 60 18 124/62 97 Room Air 11/06 1049 Room Air Room Air 11/06 0852 6 154/82 11/06 0852 66 154/82 / 0852 66 154/85 / 0811 Room Air Room Air 11/06 0800 98 Room Air / 0641 98.1 60 18 154/82 98 Room Air 11/05 2223 98.7 60 20 132/90 97 Room Air 11/05 2105 64 132/90 Intake & Output 11/06 1600 11/06 0800 /05 0000 / 1600 11/05 0800 11/05 0000 Intake Total 770 720 420 900 900 390 Output Total 250 450 Balance 520 720 420 900 450 390 Intake, IV 150 600 300 500 600 150 Intake, Oral 620 120 120 400 300 240 Output, Urine 250 450 Patient 157 lb Weight Weight Bed scale Measurement Method Physical Exam: Gen: The patient is in no acute distress HEENT: Normal nose, ears, and oropharynx. Pupils equal bilaterally. Conjunctiva normal. Neck: Supple with no JVD, no masses, and no thyromegaly Lungs: Clear to auscultation with normal respiratory effort Heart: RRR, S1, S2, no murmurs. No peripheral edema, 2+ pulses in the lower extremities bilaterally Abdomen: Soft, nontender, no masses. No hepatomegaly. No splenomegaly Extremities: No clubbing or cyanosis. Normal muscle strength in the upper and lower extremities Skin: Normal skin turgor with no skin ulcers or lesions noted. Neuro: Cranial nerves intact. Sensation intact Current Medications: Current Medications Sig/Gildardo Start time Last Medication Dose Route Stop Time Status Admin Acetaminophen 650 MG ONCE ONE 11/05 2114 DC 11/05 PO 11/05 Acetaminophen 500 MG Q6P PRN 11/04 1600 AC 11/05 PO 1634 Apixaban 5 MG BID 11/03 1327 AC 11/06 PO 0852 Atorvastatin Calcium 20 MG QPM 11/03 2200 AC 11/05 PO 2105 Docusate Sodium 100 MG DAILY NEEDED PRN 11/05 1100 AC 11/05 PO 1232 Hydralazine HCl 25 MG BID 11/03 1327 AC 11/06 PO 0852 Losartan Potassium 50 MG DAILY 11/03 1328 AC 11/06 PO 0852 Metoprolol Succinate 100 MG DAILY 11/03 1328 AC 11/06 PO 0852 Omeprazole 40 MG DAILY AC 11/03 1328 AC 11/06 PO 0603 Patient Medication 1 ED ONE ONE 11/06 1415 DC Teaching ED 11/06 1416 Senna 187 MG AT BEDTIME 11/05 2200 AC 11/05 PO 2105 Sodium Chloride 1,000 ML Q13H 11/03 1330 DC 11/06 IV 0249 Results Last 48 Hrs of Labs/Mics: Laboratory Tests 11/05/17 0657: Anion Gap 8, Estimated GFR 47 L, BUN/Creatinine Ratio 10.9, CBC w Diff NO MAN DIFF REQ, RBC 3.37 L, MCV 87.8, MCH 29.3, MCHC 33.3, RDW 15.7 H, MPV 6.7 L, Gran % 62.5, Lymphocytes % 23.6, Monocytes % 11.1 H, Eosinophils % 2.4, Basophils % 0.4, Absolute Granulocytes 4.2, Absolute Lymphocytes 1.6, Absolute Monocytes 0.7 H, Absolute Eosinophils 0.2, Absolute Basophils 0 Recent Imaging Studies: Echocardiogram 11/06/17: Normal size left ventricle. Mild concentric left ventricular hypertrophy. Left ventricular ejection fraction is estimated at >60%. Abnormal relaxation filling pattern of the left ventricle for age (stage 1 diastolic dysfunction). Catheter/pacemaker wire in the right ventricular cavity. Trace mitral regurgitation. Mild tricuspid regurgitation. Trace pulmonic regurgitation. Assessment/Plan Assessment/Plan Assessment: 1. Permanent pacemaker, interrogated and functioning normally with no significant arrhythmias 2. Recent fall with presyncope, lightheadedness, and dizziness. Possibly secondary to volume depletion Plan: * Pacemaker interrogation completed with abnormalities * Orthostatics are negative * Continue current cardiac medications * Discharge to short-term rehab Continue telemetry? Yes
[2017-11-06 21:53] VITALS: BP 130/72
[2017-11-07 07:01] VITALS: BP 128/62
--- NOTE | 2017-11-07 07:39 | PN- Housestaff ---
See Addendum Subjective Follow-up For: Fall secondary to weakness Dehydration Subjective: No complaints or acute events overnight Review of Systems Constitutional: Reports: see HPI. Objective Last 24 Hrs of Vital Signs/I&O Vital Signs Date Time Temp Pulse Resp B/P B/P Pulse O2 O2 Flow FiO2 Mean Ox Delivery Rate 11/07 1025 98.8 59 18 128/62 03/06 0944 59 128/62 03/06 0943 59 128/62 03/06 0943 59 128/62 03/06 0701 98.8 59 18 128/62 97 Room Air 03/ 2338 Room Air / 2237 60 132/74 03/05 2153 98.2 60 18 130/72 96 Room Air 11/06 1600 97 Room Air 11/06 1409 97.9 60 18 124/62 97 Room Air Intake & Output 11/07 1600 06 0800 11/07 0000 Intake Total 240 500 Output Total Balance 240 500 Intake, Oral 240 500 Patient 156 lb Weight Weight Bed scale Measurement Method Physical Exam General Appearance: Alert, Oriented X3, Cooperative, No Acute Distress Cardiovascular: 09/09 systolc murmur Lungs: Clear to Auscultation, Normal Air Movement Abdomen: Normal Bowel Sounds, Soft, No Tenderness Extremities: No Edema Assessment/Plan Assessment: Ms. 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 Terrance Segura from [place], was brought in for poor oral intake and weakness. Problem list: Fall Weakness Dehydration Plan: * PM interogation without significant arrhythmias * Spoke with Dr. Fountain in regards to the patient's anticoagulation, she reports patient has a history of paroxysmal atrial fibrillation * Cardiology recommendations appreciated * Orthostats negative 11/05/17 * ECHO showed stage 1 diastolic dysfunction, EF>60%. * Patient willl go to [facility] upon discharge Code: DNR/DNI Problem List: 1. Fall 2. Dehydration Pain Ratin Pain Location: NA Pain Goal: Remain pain free Pain Plan: NA Tomorrow's Labs & Rationales: None
--- NOTE | 2017-11-07 10:21 | PN- Cardiology ---
Subjective Subjective: The patient reports that she is feeling well. No chest pain. No shortness of breath. No palpitations. No diaphoresis. No lightheadedness or dizziness. No nausea or vomiting. Objective Vital Signs and I&Os Vital Signs Date Time Temp Pulse Resp B/P B/P Pulse O2 O2 Flow FiO2 Mean Ox Delivery Rate 11/07 0844 59 128/62 11/07 0943 59 128/62 11/07 0943 59 128/62 11/07 0701 98.8 59 18 128/62 97 Room Air 11/06 2338 Room Air 11/06 2237 60 132/74 11/06 2153 98.2 60 18 130/72 96 Room Air 11/06 1600 97 Room Air 11/06 1409 97.9 60 18 124/62 97 Room Air 11/06 1049 Room Air Room Air Intake & Output 11/07 1600 11/07 0800 / 0000 11/06 1600 11/06 0800 11/06 0000 Intake Total 240 500 770 720 420 Output Total 250 Balance 240 500 520 720 420 Intake, IV 150 600 300 Intake, Oral 240 500 620 120 120 Output, Urine 250 Patient 156 lb 157 lb Weight Weight Bed scale Bed scale Measurement Method Physical Exam: Gen: The patient is in no acute distress HEENT: Normal nose, ears, and oropharynx. Pupils equal bilaterally. Conjunctiva normal. Neck: Supple with no JVD, no masses, and no thyromegaly Lungs: Clear to auscultation with normal respiratory effort Heart: RRR, S1, S2, no murmurs. No peripheral edema, 2+ pulses in the lower extremities bilaterally Abdomen: Soft, nontender, no masses. No hepatomegaly. No splenomegaly Extremities: No clubbing or cyanosis. Normal muscle strength in the upper and lower extremities Skin: Normal skin turgor with no skin ulcers or lesions noted. Neuro: Cranial nerves intact. Sensation intact Current Medications: Current Medications Sig/Gildardo Start time Last Medication Dose Route Stop Time Status Admin Acetaminophen 500 MG Q6P PRN 11/04 1600 AC 11/05 PO 1634 Apixaban 5 MG BID 11/03 1327 AC 11/07 PO 0943 Atorvastatin Calcium 20 MG QPM 11/03 2200 AC 11/06 PO 2237 Docusate Sodium 100 MG DAILY NEEDED PRN 11/05 1100 AC 11/05 PO 1232 Hydralazine HCl 25 MG BID 11/03 1327 AC 11/07 PO 0943 Losartan Potassium 50 MG DAILY 11/03 1328 AC 11/07 PO 0943 Metoprolol Succinate 100 MG DAILY 11/03 1328 AC 11/07 PO 0944 Omeprazole 40 MG DAILY AC 11/03 1328 AC 11/07 PO 0636 Patient Medication 1 ED ONE ONE 11/06 1415 DC Teaching ED 11/06 1416 Senna 187 MG AT BEDTIME 11/05 2200 AC 11/06 PO 2238 Assessment/Plan Assessment/Plan Assessment: 1. Permanent pacemaker, interrogated and functioning normally with no significant arrhythmias 2. Recent fall with presyncope, lightheadedness, and dizziness. Possibly secondary to volume depletion Plan: * Pacemaker interrogation completed with abnormalities * Orthostatics are negative * Continue current cardiac medications * Discharge to short-term rehab Continue telemetry? No
[2017-11-07 10:25] VITALS: BP 128/62
== END 2017-11-07 11:10 | DRG 641 ==
LOC: ERH 09:10 → 1NO 11:49 → ERHI 11:49 → ENRESERV 12:44 → ENTRNSPT 13:22 → EDTRNSPT 13:36 → EDTRNSPTSTS 13:36 → CMPTRNSPT 13:45 → 2NA 14:00 → 1NO 16:19 → ENPENDDIS 11-07 09:25 → 1NO 11-07 11:10
PROVIDERS: Emergency Medicine; Student in an Organized Health Care Education/Training Program
DX: E86.0 Dehydration (principal); I48.0 Paroxysmal atrial fibrillation; E87.1 Hypo-osmolality and hyponatremia; Z79.01 Long term (current) use of anticoagulants; I10 Essential (primary) hypertension; E78.00 Pure hypercholesterolemia, unspecified; F41.9 Anxiety disorder, unspecified; Z85.43 Personal history of malignant neoplasm of ovary; K21.9 Gastro-esophageal reflux disease without esophagitis; Z95.0 Presence of cardiac pacemaker; W18.30XA Fall on same level, unspecified, initial encounter
CPT/HCPCS: 1NSP; 36415; 36592; 71045; 81003; 82436; 93005; 93010; 93306; 97110-GO; 97116-GO; 97161-GP; 97530-GO; J1644; J7508

== ENCOUNTER 2018-04-30 11:26 | Inpatient (IN) | payer OTHER, MEDICARE ==
[~2018-04-30] VITALS: Ht 152.4 cm; Wt 69.6 kg
[~2018-04-30 11:26] MED LIST changes: +ELIQUIS5 M1 PO; +LOSARTAN POTASS50 M1 PO
[2018-04-30 11:58] LABS: ABSOLUTE BASOPHIL COUNT 0 /CUMM (0.0-0.2); ABSOLUTE EOSINOPHIL COUNT 0 /CUMM (0.0-0.7); ABSOLUTE GRANULOCYTE CT 10.4 /CUMM (1.4-6.5); ABSOLUTE LYMPH COUNT 0.4 /CUMM (1.2-3.4); ABSOLUTE MONOCYTE COUNT 0.1 /CUMM (0.10-0.60); BASOPHIL % 0 % (0.0-2.0); EOSINOPHIL % 0.3 % (0-5); GRANULOCYTE % 95.5 % (42.2-75.2); HEMATOCRIT 34.6 % (37-47); MEAN CORPUSCULAR HGB 27.7 PG (27.0-31.0); MEAN CORPUSCULAR HGB CONC 34.3 G/DL (33.0-37.0); MEAN CORPUSCULAR VOLUME 80.8 FL (81.0-99.0); MEAN PLATELET VOLUME 6.4 FL (7.4-10.4); PLATELET COUNT 338 /CUMM (130-400); RBC DISTRIBUTION WIDTH 16.6 % (11.5-14.5); RED BLOOD CELL CT 4.28 /CUMM (4.20-5.40); WHITE BLOOD CELL COUNT 10.9 /CUMM (4.8-10.8)
--- NOTE | 2018-04-30 12:14 | ED GENERAL ADULT ---
History of Present Illness General Chief Complaint: Abdominal Pain/Flank Pain Stated Complaint: N/V Source: patient Exam Limitations: no limitations Vital Signs & Intake/Output Vital Signs & Intake/Output Vital Signs Date Time Temp Pulse Resp B/P B/P Pulse O2 O2 Flow FiO2 Mean Ox Delivery Rate 04/30 1544 98.4 68 16 124/58 99 04/30 1405 98.8 72 16 109/55 97 Room Air 04/30 1328 99.9 04/30 1229 90 04/30 1203 102.3 04/30 1130 102.3 119 17 120/85 94 Room Air Allergies Coded Allergies: No Known Allergies (04/04/16) Reconcile Medications Amlodipine Besylate 5 MG TABLET 5 MG PO DAILY HTN Apixaban (Eliquis) 5 MG TABLET 1 TAB PO BID BLOOD THINNER (Reported) Atorvastatin Calcium (Lipitor) 20 MG TABLET 1 TAB PO QPM CHOLESTEROL ( Reported) Hydralazine HCl 25 MG TABLET 1 TAB PO BID HEART (Reported) Losartan Potassium 50 MG TABLET 1 TAB PO DAILY HEART (Reported) Metoprolol Succinate 100 MG TAB.ER.24H 1 TAB PO DAILY HEART (Reported) Pantoprazole Sodium (Protonix) 40 MG TABLET.DR 1 TAB PO DAILY ACID REFLUX ( Reported) Triage Note: PT TO ED BY AMBULANCE FROM HOME WITH C/O N/V, LOWER ABD PAIN BEGINNING THIS AM. DENIES CP, SOB. Triage Nurses Notes Reviewed? yes Onset: Abrupt Duration: day(s): (1), constant, continues in ED, getting worse Timing: single episode today Injury Environment: home Severity: mild, moderate Severity Numbers: 6 No Modifying Factors: none LMP (ages 10-50): unknown HPI: 82-year-old female past medical history of hypertension hyperlipidemia pacemaker presents for evaluation of fever and abdominal pain. Patient reports that she woke up today "feeling lousy". She comes in with a fever of 102. she has not taken any Tylenol. She states that she has diffuse lower abdominal pain described as cramping. She also states she feels short of breath. No coughing hemoptysis or lower extremity edema. She denies a history of lung disease. She denies any rashes. No joint pain or swelling. No back pain. She states that she has been eating and drinking normally. No headaches. (Drew Chambers) Past History Travel History Traveled to [place] past 21 day No Medical History Any Pertinent Medical History? 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 HYSTERECTOMY Psychosocial History Who do you live with Patient/Self Services at Home None What is your primary language Guatemalan Tobacco Use: Never used ETOH Use: denies use Illicit Drug Use: denies illicit drug use Family History Family History, If Any: SISTER FH: cancer Hx Contributory? No (Drew Chambers) Review of Systems Review of Systems Constitutional: Reports: fever, malaise, weakness. EENTM: Reports: no symptoms. Respiratory: Reports: see HPI, short of breath. Cardiovascular: Reports: no symptoms. GI: Reports: see HPI, abdominal pain. Genitourinary: Reports: no symptoms. Musculoskeletal: Reports: no symptoms. Skin: Reports: no symptoms. Neurological/Psychological: Reports: no symptoms. Hematologic/Endocrine: Reports: no symptoms. Immunologic/Allergic: Reports: no symptoms. All Other Systems: Reviewed and Negative (Drew Chambers) Physical Exam Physical Exam General Appearance: well developed/nourished, no apparent distress, alert, awake Head: atraumatic, normal appearance Eyes: Bilateral: normal appearance, PERRL, EOMI. Ears, Nose, Throat: hearing grossly normal Neck: normal inspection, supple, full range of motion Respiratory: normal breath sounds, chest non-tender, no respiratory distress, lungs clear Cardiovascular: normal peripheral pulses, tachycardia Peripheral Pulses: 2+ radial (R), 2+ radial (L) Gastrointestinal: normal bowel sounds, soft, no organomegaly, distention, tenderness (LOWER ABDOMEN DIFFUSLY) Back: normal inspection, normal range of motion, no vertebral tenderness Extremities: normal inspection, normal range of motion, no edema Neurologic/Psych: no motor/sensory deficits, awake, alert, oriented to person and place only Skin: intact, normal color, warm/dry, rash, patient has areas of dry scaling skin on her left upper arm and lower back. Some of these areas are circular and annular may represent fungal infections versus dermatitis Lymphatic: no anterior cervical seferino Core Measures ACS in differential dx? No CVA/TIA Diagnosis: No Sepsis Present: No Sepsis Focused Exam Completed? No (Calos MALIK,Drew) Progress Differential Diagnoses I considered the following diagnoses in my evaluation of the patient: [Pneumonia , PE, acute coronary syndrome, sepsis, UTI, cellulitis] Diagnostic Imaging: Viewed by Me: Radiology Read, CT Scan. Discussed w/RAD: Radiology Read, CT Scan. Radiology Impression: PATIENT: RO AVILA PRESENT AGE: 82 PATIENT ACCOUNT NO: [id number] : 34 LOCATION: [facility] ORDERING PHYSICIAN: Drew MALIK SERVICE DATE: 04/30/18 EXAM TYPE: CAT - CT ABD & PELVIS W IV CONTRAST; CTA CHEST-PULMONARY EMBOLISM EXAMINATION: CTA CHEST CT ABDOMEN AND PELVIS WITH CONTRAST CLINICAL INFORMATION: Fever. Cough. Tachycardia. Shortness of breath. Diffuse abdominal pain. Fever. Abdominal distention. COMPARISON: CT of chest 10/29/2017. CT abdomen and pelvis 2015. Portable chest x-ray 04/05/2018. TECHNIQUE: A noncontrast localizer was performed, followed by the administration of 95 mL Optiray [address] of the chest was then performed. Coronal and sagittal reformatted and 3-D technique MIP images of the chest were completed at the CT scanner and reviewed on the PACS workstation. No adverse effects were reported. Images were then performed through the abdomen and pelvis. Coronal and sagittal reformatted images performed at CT scanner by technologist. DLP: 839.7 mGy-cm FINDINGS: There is motion on the CT images of the chest which limits the study. CTA CHEST; Vascular: The main pulmonary artery, secondary and tertiary branches of the pulmonary artery are normally opacified with no evidence of pulmonary embolism. There are atherosclerotic vascular wall calcifications of the aorta. There is no aneurysm of the aorta. The ascending aorta measures 3.5 cm transverse. There is a pacemaker lead in the right atrium and right ventricle. Mediastinum: Enlarged lymph node in the pretracheal retrovascular space and the aortopulmonary window are unchanged in size since the CT scan of 10/29/2017. There is no new lymph node or mass of the mediastinum. Lungs: 5 mm nodule right upper lobe axial image 19 (3) has central coarse calcification consistent with a granuloma. This is unchanged since the prior CT scan. Fluid: There is no pericardial effusion. There is no pleural effusion. Axillae: No significant lymphadenopathy. CT ABDOMEN AND PELVIS: Liver, Gallbladder, and Biliary Tree: There are several scattered small, low-attenuating lesions in the upper left and right lobes of the liver which remain unchanged since the CT scan of 10/29/2017. These are likely small hepatic cysts. No new liver lesion. There is no intrahepatic bile duct dilatation. There are multiple calcified gallstones layering dependently in the gallbladder. There is no edema around the gallbladder. There is no bile duct dilatation. Pancreas: Unremarkable. Spleen: Unremarkable. Adrenal Glands: Unremarkable. Kidneys and Ureters: The right kidney is atrophic. There are multiple renal cysts in both kidneys. There is no renal or ureteral calculus. There is no hydronephrosis. Bladder: Unremarkable. Gastrointestinal Tract: Surgical suture line at the distal rectum and sigmoid. There is a surgical suture line also in the mid lower pelvis involving the small bowel. There is diverticulosis of the left colon and sigmoid with a few diverticula of the right colon. There is no diverticulitis. There is no acute change of the bowel. No bowel obstruction. No bowel wall thickening or edema. The appendix is normal. Abdominal Wall: No significant hernia is appreciated. Lymph Nodes: Normal. Vascular: There are extensive vascular calcifications of the aorta and iliac arteries. There is no aneurysm. There is no evidence for aortic dissection. There is calcification at the origin of the SMA. Pelvic Viscera: The uterus is absent. There is no adnexal abnormality. Osseous Structures: Multilevel degenerative spondylosis of the spine with disc height narrowing, endplate spurring and facet joint arthrosis. IMPRESSION: 1. No acute change of the chest. No evidence of pulmonary embolism. 2. Stable mediastinal lymphadenopathy unchanged since the CT scan 10/29/2017. 3. Cholelithiasis. No acute change of the gallbladder wall. 4. Atrophic right kidney. Bilateral renal cysts. No renal calculi or hydronephrosis. 5. Status post partial sigmoidectomy and prior small bowel anastomosis. There is diverticulosis of the colon but no diverticulitis. No acute abnormality of the bowel. 6. Status post hysterectomy. 7. Stable small hypodense lesions of the liver, likely small hepatic cysts. DICTATED BY: Michael Lopes MD DATE/TIME DICTATED:04/30/181507 SLATE ROOFER :KIKE DATE/TIME TRANSCRIBED:04/30/181507 CONFIDENTIAL, DO NOT COPY WITHOUT APPROPRIATE AUTHORIZATION. <Electronically signed in Other Vendor System> SIGNED BY: Michael Lopes MD 04/30/18 1555 CXR Impression: PATIENT: RO AVILA PRESENT AGE: 82 PATIENT ACCOUNT NO: [id number] : 34 LOCATION: [facility] ORDERING PHYSICIAN: Drew MALIK SERVICE DATE: 04/30/18-1150 EXAM TYPE: RAD - XRY-PORTABLE CHEST XRAY EXAMINATION: XR PORTABLE CHEST CLINICAL INFORMATION: Sepsis COMPARISON: 11/03/2017 TECHNIQUE: Portable frontal view of the chest was obtained. FINDINGS: Lungs are well expanded and grossly clear. No pulmonary edema, focal consolidation or pleural effusion. Cardiomegaly with dual-chamber pacemaker in place. Atherosclerotic calcification of the thoracic aorta. Bone density is diffusely decreased. IMPRESSION: - Cardiomegaly. - No acute pulmonary disease compared to 11/03/2017. DICTATED BY: Jaycob Prince MD DATE/TIME DICTATED:04/30/181243 SLATE ROOFER:KIKE DATE/TIME TRANSCRIBED:1243 CONFIDENTIAL, DO NOT COPY WITHOUT APPROPRIATE AUTHORIZATION. Initial ED EKG: VENTRICULAR PACED COMLPEXES, LVH WITH IVCD (Calos MALIK,Drew) Plan of Care: Orders Procedure Date/time Status Heart Healthy Diet 05/01 B Active Pathway - chart 04/30 1635 Active House Staff 04/30 1635 Active Misc Message 04/30 1628 Active ED Holding Orders 04/30 1628 Active Admit to inpatient 04/30 1628 Active Vital Signs 04/30 1628 Active Code Status 04/30 1628 Active Patient Data 04/30 1557 Active LACTIC ACID 04/30 1439 Complete Add-on Test (ER Only) 04/30 1337 Active Add-on Test (ER Only) 04/30 1157 Active Add-on Test (ER Only) 04/30 1148 Active Straight Cath 04/30 1148 Active CULTURE,URINE 04/30 1146 Active PARTIAL THROMBOPLASTIN TIME 04/30 1144 Complete PROTHROMBIN TIME 04/30 1144 Complete MAGNESIUM 04/30 1144 Complete D-DIMER 04/30 1144 Complete BLOOD CULTURE 04/30 1139 Active URINALYSIS 04/30 1130 Complete TROPONIN LEVEL 04/30 1130 Complete LIPASE 04/30 1130 Complete COMPREHENSIVE METABOLIC PANEL 04/30 113 Complete CBC WITHOUT DIFFERENTIAL 04/30 113 Complete EKG 04/30 113 Active VTE Mechanical Prophylaxis 04/30 UNK Active Current Medications Sig/Gildardo Start time Last Medication Dose Stop Time Status Admin Sodium Chloride 1,000 ML BOLUS ONE 04/30 1645 UNVr (Normal Saline 0.9%) 04/30 1744 Magnesium Sulfate 1 GM Q2H 04/30 1245 AC 04/30 (Mag Sulfate in D5) 04/30 164 1605 Dextrose/Water 100 ML (D5W) Laboratory Tests 04/30/18 1216: Urine Color YEL, Urine Clarity HAZY H, Urine pH 6.0, Ur Specific [place] 1.015, Urine Protein NEG, Urine Ketones TRACE H, Urine Nitrite POS H, Urine Bilirubin NEG, Urine Urobilinogen 0.2, Ur Leukocyte Esterase SMALL H, Ur Microscopic SEDIMENT EXAMINED, Urine RBC RARE, Urine WBC 10-15 H, Ur Epithelial Cells MOD H, Urine Bacteria MANY H, Urine Hemoglobin NEG, Urine Glucose NEG 04/30/18 1144: Lactic Acid 1.9 04/30/18 114: Anion Gap 9, Estimated GFR 47 L, BUN/Creatinine Ratio 13.6, Glucose 76, Calcium 10.2, Magnesium 1.2 L, Total Bilirubin 0.5, AST 20, ALT 33, Alkaline Phosphatase 119, Troponin I < 0.01, Total Protein 6.4, Albumin 3.6, Globulin 2.8 , Albumin/Globulin Ratio 1.3, Lipase 142, PT 14.8 H, INR 1.35 H, APTT 22 L, D -Dimer High Sensitivty 299 H, CBC w Diff MAN DIFF ORDERED, RBC 4.28, MCV 80.8 L, MCH 27.7, MCHC 34.3, RDW 16.6 H, MPV 6.4 L, Gran % 95.5 H, Lymphocytes % 3.5 L, Monocytes % 0.7 L, Eosinophils % 0.3, Basophils % 0, Absolute Granulocytes 10.4 H, Segmented Neutrophils 82 H, Band Neutrophils 10 H, Absolute Lymphocytes 0.4 L, Lymphocytes 6 L, Monocytes 2, Absolute Monocytes 0.1, Absolute Eosinophils 0, Absolute Basophils 0, Platelet Estimate ADEQUATE, Normocytic RBCs VERIFIED, Normochromic RBCs VERIFIED 04/30/18 1139: Lactic Acid Cancelled Microbiology 04/30 1205 BLOOD: Blood Culture - RECD 04/30 1146 URINE ROUT: Urine Culture - ORD 04/30 1144 BLOOD: Blood Culture - RECD Patient presents with a fever of 102 and lower abdominal pain. She is also tachycardic. Labs fluids were ordered. Blood cultures urine culture CT scan of the chest and pelvis was ordered. Blood work shows a white count of 11,000 with bandemia. Age-adjusted d-dimer is negative. Sodium 128 magnesium 1.2. Patient is getting normal saline. Magnesium will be replaced. Urine is showing signs of infection patient will be started on Rocephin. CT scan of the chest on the pelvis is negative for pulmonary embolism. EKG shows ventricular pace complexes. Tachycardia is improved after fluids. CT scan of the abdomen and pelvis is negative for acute findings. Patient will be treated for UTI leukocytosis and fever. She'll require serial labs IV antibiotics IV fluids follow-up blood cultures follow-up urine cultures. Case discussed Dr. Gaxiola he agrees. (Drew Chambers) (Khalida KING,Jayson Brink) Departure Departure Disposition: STILL A PATIENT Condition: Stable Clinical Impression Primary Impression: Acute cystitis Qualifiers: Hematuria presence: without hematuria Qualified Code: N30.00 - Acute cystitis without hematuria Secondary Impressions: Fever Qualifiers: Fever type: unspecified Qualified Code: R50.9 - Fever, unspecified Leukocytosis Qualifiers: Leukocytosis type: bandemia Qualified Code: D72.825 - Bandemia Referrals: Essie KING,Mratha Brink (PCP/Family) Departure Forms: Customer Survey General Discharge Information Admission Note Spoke With: Richi Curiel MD Documentation of Exam: Documentation of any treatments & extenuating circumstances including Concerns Regarding Discharge (functional status, medication knowledge or non-compliance, living conditions, etc.) that warrant an admission rather than observation: [ Serial labs, IV fluids, IV antibiotics, IV antipyretics, follow up urine and blood cultures, physical therapy, case management] (Drew Chambers) PA/[employer] Co-Sign Statement Statement: ED Attending supervision documentation- [X] I saw and evaluated the patient. I have also reviewed all the pertinent lab results and diagnostic results. I agree with the findings and the plan of care as documented in the PA's/[employer]'s documentation. Patient presents for evaluation of abdominal pain. [] I have reviewed the ED Record and agree with the PA's/[employer]'s documentation. [] Additions or exceptions (if any) to the PAs/[employer]'s note and plan are summarized below: [] (Khalida KING,Jayson Brink) Critical Care Note Critical Care Note Critical Care Time: non-applicable (Drew Chambers)
[2018-04-30 12:22] LABS: PT 14.8 SEC (9.4-12.5); PTT 22 SEC (25-37)
--- NOTE | 2018-04-30 12:50 | RADIOLOGY REPORT ---
EXAMINATION: XR PORTABLE CHEST CLINICAL INFORMATION: Sepsis COMPARISON: 11/03/2017 TECHNIQUE: Portable frontal view of the chest was obtained. FINDINGS: Lungs are well expanded and grossly clear. No pulmonary edema, focal consolidation or pleural effusion. Cardiomegaly with dual-chamber pacemaker in place. Atherosclerotic calcification of the thoracic aorta. Bone density is diffusely decreased. IMPRESSION: - Cardiomegaly. - No acute pulmonary disease compared to 11/03/2017.
--- NOTE | 2018-04-30 15:55 | CT SCAN REPORT ---
EXAMINATION: CTA CHEST CT ABDOMEN AND PELVIS WITH CONTRAST CLINICAL INFORMATION: Fever. Cough. Tachycardia. Shortness of breath. Diffuse abdominal pain. Fever. Abdominal distention. COMPARISON: CT of chest 10/29/2017. CT abdomen and pelvis 04/04/2016. Portable chest x-ray 04/05/2018. TECHNIQUE: A noncontrast localizer was performed, followed by the administration of 95 mL Optiray [address] of the chest was then performed. Coronal and sagittal reformatted and 3-D technique MIP images of the chest were completed at the CT scanner and reviewed on the PACS workstation. No adverse effects were reported. Images were then performed through the abdomen and pelvis. Coronal and sagittal reformatted images performed at CT scanner by technologist. DLP: 839.7 mGy-cm FINDINGS: There is motion on the CT images of the chest which limits the study. CTA CHEST; Vascular: The main pulmonary artery, secondary and tertiary branches of the pulmonary artery are normally opacified with no evidence of pulmonary embolism. There are atherosclerotic vascular wall calcifications of the aorta. There is no aneurysm of the aorta. The ascending aorta measures 3.5 cm transverse. There is a pacemaker lead in the right atrium and right ventricle. Mediastinum: Enlarged lymph node in the pretracheal retrovascular space and the aortopulmonary window are unchanged in size since the CT scan of 10/29/2017. There is no new lymph node or mass of the mediastinum. Lungs: 5 mm nodule right upper lobe axial image 19 (3) has central coarse calcification consistent with a granuloma. This is unchanged since the prior CT scan. Fluid: There is no pericardial effusion. There is no pleural effusion. Axillae: No significant lymphadenopathy. CT ABDOMEN AND PELVIS: Liver, Gallbladder, and Biliary Tree: There are several scattered small, low-attenuating lesions in the upper left and right lobes of the liver which remain unchanged since the CT scan of 10/29/2017. These are likely small hepatic cysts. No new liver lesion. There is no intrahepatic bile duct dilatation. There are multiple calcified gallstones layering dependently in the gallbladder. There is no edema around the gallbladder. There is no bile duct dilatation. Pancreas: Unremarkable. Spleen: Unremarkable. Adrenal Glands: Unremarkable. Kidneys and Ureters: The right kidney is atrophic. There are multiple renal cysts in both kidneys. There is no renal or ureteral calculus. There is no hydronephrosis. Bladder: Unremarkable. Gastrointestinal Tract: Surgical suture line at the distal rectum and sigmoid. There is a surgical suture line also in the mid lower pelvis involving the small bowel. There is diverticulosis of the left colon and sigmoid with a few diverticula of the right colon. There is no diverticulitis. There is no acute change of the bowel. No bowel obstruction. No bowel wall thickening or edema. The appendix is normal. Abdominal Wall: No significant hernia is appreciated. Lymph Nodes: Normal. Vascular: There are extensive vascular calcifications of the aorta and iliac arteries. There is no aneurysm. There is no evidence for aortic dissection. There is calcification at the origin of the SMA. Pelvic Viscera: The uterus is absent. There is no adnexal abnormality. Osseous Structures: Multilevel degenerative spondylosis of the spine with disc height narrowing, endplate spurring and facet joint arthrosis. IMPRESSION: 1. No acute change of the chest. No evidence of pulmonary embolism. 2. Stable mediastinal lymphadenopathy unchanged since the CT scan 10/29/2017. 3. Cholelithiasis. No acute change of the gallbladder wall. 4. Atrophic right kidney. Bilateral renal cysts. No renal calculi or hydronephrosis. 5. Status post partial sigmoidectomy and prior small bowel anastomosis. There is diverticulosis of the colon but no diverticulitis. No acute abnormality of the bowel. 6. Status post hysterectomy. 7. Stable small hypodense lesions of the liver, likely small hepatic cysts.
--- NOTE | 2018-04-30 16:08 | History & Physical ---
Kimberley Elizalde 04/30/18 0567: General Information and HPI History of Present Illness: 82-year-old woman with past medical history of hypertension, hyperlipidemia, diverticulosis, GERD, pneumonia, ovarian cancer status post removal and chemo, colostomy, anxiety, psoriasis comes to the ED with chief complaint of decreased oral intake and vomiting. for the past couple of days. She states that she was in her usual state of health before the weekend when she was suddenly "not able to keep anything down". She states her neighbors called in the ambulance because she had been throwing up whatever little she ate. She denies fever, chills, chest pain, shortness of breath, weakness, dizziness or lightheadedness. She was surprised when she was told sh ewas running a fever while in the ED. Allergies/Medications Allergies: Coded Allergies: No Known Allergies (04/04/16) Home Med list Amlodipine Besylate 5 MG TABLET 5 MG PO DAILY HTN Apixaban (Eliquis) 5 MG TABLET 1 TAB PO BID BLOOD THINNER (Reported) Atorvastatin Calcium (Lipitor) 20 MG TABLET 1 TAB PO QPM CHOLESTEROL ( Reported) Hydralazine HCl 25 MG TABLET 1 TAB PO BID HEART (Reported) Losartan Potassium 50 MG TABLET 1 TAB PO DAILY HEART (Reported) Metoprolol Succinate 100 MG TAB.ER.24H 1 TAB PO DAILY HEART (Reported) Pantoprazole Sodium (Protonix) 40 MG TABLET.DR 1 TAB PO DAILY ACID REFLUX ( Reported) Past History Travel History Traveled to [place] past 21 day No Medical History Neurological: NONE EENT: NONE Cardiovascular: hypertension, HLD atrial-ventricular dual pacemaker Respiratory: pneumonia Gastrointestinal: diverticulitis, GERD, status post colostomy Hepatic: NONE Renal: NONE Musculoskeletal: NONE Psychiatric: anxiety Endocrine: NONE Blood Disorders: NONE Cancer(s): ovarian cancer, status post removal and chemotherapy at age 29 OPERATIONS COORDINATOR/Reproductive: NONE Other Medical Hx: Psoriasis History of MRSA: No History of VRE: No History of CDIFF: No Surgical History Surgical History: permanent pacemaker LCW Ovarian cancer colostomy with reversal ? HYSTERECTOMY Past Family/Social History Family History Relations & Conditions if any SISTER FH: cancer Psychosocial History Who Do You Live With? spouse Services at Home: None Primary Language: Vincentian ETOH Use: denies use Illicit Drug Use: denies illicit drug use Living Will? no Functional Ability ADLs Independent: dressing, eating, toileting, bathing. Ambulation: independent IADLs Independent: shopping, housework, finances, food prep, telephone, transportation , medication admin. Review of Systems Review of Systems Constitutional: Reports: malaise. Denies: chills, diaphoresis, fever, unexplained weight loss. Cardiovascular: Denies: chest pain, edema, orthopena, palpitations. GI: Reports: abdominal pain, nausea, vomiting. Denies: diarrhea. Genitourinary: Denies: dysuria, frequency, hematuria, hesitation, pain, urgency. Skin: Denies: change in skin color, change in hair/nails. Neurological/Psychological: Reports: anxiety. Denies: depressed, dementia. Hematologic/Endocrine: Denies: bruising, bleeding. Exam & Diagnostic Data Last 24 Hrs of Vital Signs/I&O Vital Signs Date Time Temp Pulse Resp B/P B/P Pulse O2 O2 Flow FiO2 Mean Ox Delivery Rate 04/30 2135 98.2 60 18 151/68 96 Room Air 04/30 1843 98.6 60 16 136/62 95 Room Air 04/30 1544 98.4 68 16 124/58 99 04/30 1405 98.8 72 16 109/55 97 Room Air 04/30 1328 99.9 04/30 1229 90 04/30 1203 102.3 04/30 1130 102.3 119 17 120/85 94 Room Air Intake & Output 04/30 1600 04/30 0800 04/30 0000 Intake Total 1000 Output Total Balance 1000 Intake, IV 1000 Physical Exam General Appearance Alert, Oriented X3, Cooperative, No Acute Distress Neck Supple Cardiovascular Regular Rate, Normal S1, Normal S2 Lungs Clear to Auscultation Abdomen Normal Bowel Sounds, Soft, No Tenderness Assessment/Plan Assessment: 82-year-old woman with past medical history of hypertension, hyperlipidemia, diverticulosis, GERD, pneumonia, ovarian cancer status post removal and chemo, colostomy, anxiety, psoriasis presented to the ED with deceresed PO intake and vomiting. She is alert and oriented to time, place and person. The patient was found to have fever of 102.3 and tachycardia in the ED. However, she does not report any chills. Labs are significant for WBC 10.9, with 95.5% granulocytes, Bands: 10, Na:128, K :4.2, Bicarb: 21, BUN: 15, Creatinine:1.1, Lactic acis:1.9, M.2 UA: Trace ketones, Nitrite positive Problems: 1. UTI possibly pyelonephritis 2. Hypomagnesemia 3. Hyponatremia 4. Nausea and Vomiting We will admit the patient to the Gen Med Service 1. UTI possibly pyelonephritis -Vitals per protocol -Continue the patient on Ceftriaxone -Follow urine and blood cultures -Tyelenol for fever -Trend CBC 2. Hypomagnesemia -Repleted in the ED -We will repeat BEP in the AM 3. Hyponatermia -Appears to be chronic -Serum and urine osmolality to rule out SIADH 4. Nausea and Vomiting -Zofran as needed -Repeat BEP in the AM DVT prophyalxis: Eliquis Code status: DNR/DNI As Ranked By This Provider Problem List: 1. Hypertension 2. Hyponatremia 3. Hypomagnesemia 4. Nausea and vomiting 5. Anxiety 6. Hyperlipidemia 7. Leukocytosis Qualifiers Leukocytosis type: bandemia Qualified Code: D72.825 - Bandemia Core Measures/Misc (05/21) Acute Coronary Syndrome ACS Diagnosis: No Congestive Heart Failure Congestive Heart Failure Diagnosis No Cerebrovascular Accident CVA/TIA Diagnosis: No VTE (View Protocol) VTE Risk Factors Age>40 No Mechanical VTE Prophylaxis d/t N/A MechProphylax Ordered No VTE Pharm Prophylaxis d/t NA PharmProphylax ordered Sepsis (View protocol) Sepsis Present: No If YES complete Sepsis Event Note If YES complete Sepsis Event Note José Miguel Curieldannielle 04/30/18 1642: Core Measures/Misc (05/21) Sepsis (View protocol) If YES complete Sepsis Event Note If YES complete Sepsis Event Note Attending MD Review Statement Attending Statement Attending MD Statement: examined this patient, discuss w/resident/PA/BANKING CONSULTANT, agreed w/resident/PA/BANKING CONSULTANT, reviewed EMR data (avail), discussed with case mgmt Attending Assessment/Plan: 82-year-old female with history of hypertension, diverticulitis status post colostomy 2 years ago, ovarian cancer status post hysterectomy and chemotherapy at age 49,bradycardia S/P pacemaker placement who presented to the ER with fever and abdominal pain. Pt in ER had fever documeted of 102.3 and was found to have wbc of 10.9 with bandemia of 10% and hyponatremia of 128 and positive UA consistent with UTI. Pt had CTA of the chest and CT abdomen and plevis done which showed no PE or other abnormalities to explain his abdominal pain. Pt says she was ok till this am and started having nause and vomiting this am with achy abdominal pain. Denies any dysuria or any foul smelling of urine. Pt lives alone and has a [place] [facility] [place] her. Her 2 years back. UTI with fever and bandemia/ pt was given ceftriaxone in er. will f/u on urine culture and will repeat cbc in am and will f/u on blood cultures and will see how she does. Hyponatremia- will do urine studies and urine osmolality and serum osmolality to make sure pt does not have SIADH. She does not appear to be on meds that cause SIADH. Jose Manuel KING,Juanito 04/30/18 2132: Core Measures/Misc (05/21) Sepsis (View protocol) If YES complete Sepsis Event Note If YES complete Sepsis Event Note Resident Review Statement Resident Statement: examined this patient, discussed with internal combustion engine assembler, agreed with internal combustion engine assembler Other Findings: 82-year-old pleasant lady with a medical history significant for hypertension, ovarian cancer status post hysterectomy and chemotherapy at age 49, diverticulitis status post colostomy 2 years ago, status post permanent pacemaker placement due to symptomatic bradycardia presents to [place] ED with complaints of nausea and vomiting of nonbilious material for the past few days. She denies any abdominal pain, diarrhea, constipation, or any other GI symptoms. Associated symptoms include fever and chills. Patient states that "for the past few days I have not been able to keep anything down". At the ED she is found to have a temperature of 102.3 with a slight leukocytosis but her significant bandemia of 10. Her urine analysis was positive for nitrate and elevated WBC suggesting a urinary infection. Impression * Urinary tract infection most likely pyelonephritis given the nausea vomiting, elevated white count/bandemia and with fevers. * Hyponatremia. Patient status appears to be euvolemic. NSAID H is one of the differential. She however does not have any pain stimulus O medications that could suggest SIADH. We'll nevertheless obtain urine lites and osmolarity to further assess. * History of chronic diseases; hypertension, bradycardia, ovarian malignancy, Plan Admit to general medicine Continue ceftriaxone 1 g daily Follow-up urine cultures Follow-up blood cultures Follow-up urine lites and osmolarity Zofran as needed for nausea and vomiting Trend CBC tomorrow morning CODE STATUS; full DVT prophylaxis: Address by Tima
--- NOTE | 2018-04-30 16:40 | Admission Certification ---
Admission Certification Certification Statement - As attending physician, I certify that at the time of - admission, based on clinical presentation, severity of - symptoms, need for further diagnostic testing and - therapeutic interventions, and risk of adverse outcomes - without in-hospital treatment, in my clinical assessment, - this patient requires an acute hospital stay for a minimum - of two nights or longer. I have also considered psychsocial - factors such as support system, advanced age, financial - issues, cognitive issues, and failed out-patient treatments, - past re-admission history, safety of patient, and lack of - compliance as applicable. Specific rationale supporting this admission is: UTI and fever and hyponatremia
[2018-05-01 06:20] VITALS: BP 177/72
--- NOTE | 2018-05-01 08:42 | PN- Housestaff ---
Kimberley Elizalde 05/01/18 0841: Subjective Follow-up For: UTI Subjective: The patient was seen and examined at bedside. She is very pleasant to talk to. She says she has no residual sympotms at this time and would love to go home. She deneis any urinary sympotms, fever, chills, nausea, vomiting, abdoaminal pain. Review of Systems Constitutional: Reports: see HPI. Objective Last 24 Hrs of Vital Signs/I&O Vital Signs Date Time Temp Pulse Resp B/P B/P Pulse O2 O2 Flow FiO2 Mean Ox Delivery Rate 05/01 1359 98.3 05/01 0853 97.9 58 20 150/74 96 Room Air 05/01 0844 97.9 58 20 150/74 96 Room Air 05/01 0620 98.5 63 18 177/72 95 04/30 2135 98.2 60 18 151/68 96 Room Air 04/30 1843 98.6 60 16 136/62 95 Room Air 04/30 1544 98.4 68 16 124/58 99 Intake & Output 05/01 1600 05/01 0800 05/01 0000 Intake Total 280 60 Output Total 1060 1100 Balance -780 -1040 Intake, Oral 280 60 Output, Urine 1060 1100 Patient 150 lb 140 lb Weight Weight Reported by Patient Measurement Method Physical Exam General Appearance: Alert, Oriented X3, Cooperative, No Acute Distress Skin: No Rashes Cardiovascular: Regular Rate, Normal S1, Normal S2 Lungs: Clear to Auscultation, Normal Air Movement Abdomen: Normal Bowel Sounds, Soft, No Tenderness Vascular: Pulses Symmetrical Assessment/Plan Assessment: 82-year-old woman with past medical history of hypertension, hyperlipidemia, diverticulosis, GERD, pneumonia, ovarian cancer status post removal and chemo, colostomy, anxiety, psoriasis presented to the ED with deceresed PO intake and vomiting. She is alert and oriented to time, place and person. The patient was found to have fever of 102.3 and tachycardia in the ED but has been afebrile since. She reports no symptoms today. Blood cultures growing Gram positive cocci. Urine cultures growing gram negative rods Problems: 1. UTI possibly pyelonephritis 2. Hypomagnesemia 3. Hyponatremia 4. Nausea and Vomiting We will admit the patient to the Gen Med Service 1. UTI possibly pyelonephritis -WBC:46552 today. Would recheck in the PM -Continue the patient on Ceftriaxone -Blood cultures Gram positive cocci. Urine cultures gram negative rods -Tyelenol for fever 2. Hypomagnesemia -Repleted in the ED -We will repeat BEP in the AM 3. Hyponatermia -Na is 131 today -Urine osmolality: 255, Urine Na:54, Fena: 1.6 4. Nausea and Vomiting -Zofran as needed -Repeat BEP in the AM DVT prophyalxis: Eliquis Code status: DNR/DNI Problem List: 1. Leukocytosis 2. Fever 3. Acute cystitis 4. Dehydration 5. Physical deconditioning Pain Ratin Pain Location: none Pain Goal: Remain pain free Pain Plan: none Tomorrow's Labs & Rationales: cbc and bep Yue Sandy 05/01/18 1210: Attending MD Review Statement Attending Statement Attending MD Statement: examined this patient, discuss w/resident/PA/CORK TIPPER, agreed w/resident/PA/CORK TIPPER, discussed with family, reviewed EMR data (avail), discussed with nursing, discussed with case mgmt, reviewed images, amended to note Attending Assessment/Plan: 82-year-old female with history of hypertension, diverticulitis status post colostomy 2 years ago, ovarian cancer status post hysterectomy and chemotherapy at age 49, bradycardia S/P pacemaker placement who presented to the ER with fever and abdominal pain. Imaging CTA chest/abd/pelvis negative. Labs UA with positive nitrites. WBC elevated, blood cx positive 1/2 GPC UTI c/w abx. f/u cultures. C/W hydration Hyponatremia with mild improvement. Tolerating her diet follow clinically.
[2018-05-01 08:53] VITALS: BP 150/74
[2018-05-01 09:43] LABS: ABSOLUTE BASOPHIL COUNT 0 /CUMM (0.0-0.2); ABSOLUTE EOSINOPHIL COUNT 0 /CUMM (0.0-0.7); ABSOLUTE GRANULOCYTE CT 17.2 /CUMM (1.4-6.5); ABSOLUTE MONOCYTE COUNT 0.4 /CUMM (0.10-0.60); BASOPHIL % 0 % (0.0-2.0); EOSINOPHIL % 0.1 % (0-5)
[2018-05-01 09:53] LABS: ABSOLUTE LYMPH COUNT 0.5 /CUMM (1.2-3.4); GRANULOCYTE % 95.4 % (42.2-75.2); HEMATOCRIT 31.1 % (37-47); MEAN CORPUSCULAR HGB 27.6 PG (27.0-31.0); MEAN CORPUSCULAR HGB CONC 33.8 G/DL (33.0-37.0); MEAN CORPUSCULAR VOLUME 81.6 FL (81.0-99.0); MEAN PLATELET VOLUME 6.4 FL (7.4-10.4); PLATELET COUNT 273 /CUMM (130-400); RBC DISTRIBUTION WIDTH 17.2 % (11.5-14.5); RED BLOOD CELL CT 3.82 /CUMM (4.20-5.40)
--- NOTE | 2018-05-01 13:22 | PN- Student ---
Subjective Subjective: 82-year-old female with past medical history of hypertension, hyperlipidemia, GERD, pneumonia, diverticulitis, anxiety, ovarian cancer s/p hysterectomy and chemo came to the ED yesterday by ambulance called by her neighbor with a chief complaint of abdominal pain, vomiting, and passing out. Patient has no recollection of being transportered to the ED. Two days ago, patient reports a sudden onset of feeling constant and dull abdominal pain 8/10 in severity. She felt nauseous and vomited twice 4-5 hours after eating half a sandwich for lunch. She denies blood or bile in vomitus. Associated symptoms include mild headache and general body fatigue. She felt "fine" yesterday morning, and her last memory was lying on her couch and watching TV. She was unable to recall the events leading to her ED admission. Today, she reports doing "much better". Abdominal pain has subsided. She was able tolerate water, gingerale, and toast. She denies fever, chills, shortness of breath, recent travel, recent illness, difficulty or blood while urinating, or changes in her bowel movement. She would like to return home. PMH: HTN Hyperlipidemia GERD Pneymonia Diverticulitis Anxiety Ovarian cancer s/p hysterectomy and chemo ROS: Constitutional: Complains of mild, intermittent headaches. Denies any weakness, chills, difficulty sleeping, or unexplained weight loss. EENTM: No hearing or visual changes; no difficulty swallowing Cardiovascular: Intermittent and self-limited heart palpitations when she's emotional. Denies chest pain, orthopena, or peripheral edema. Respiratory: Dry cough. Denies any suptum production, hemoptysis or wheezing. : Denies discharge, dysuria, change in frequency, hematuria, hesitation, or urgency MSK: Denies myalgias, arthralgas, or joint pain Psych: Denies depression or hallucinations Family history: Father: at age 70 secondary to aging Mother: at age 90 secondary to aging Brother 1: when he was born. Unknown etiology. Brother 2: Brother 3: 90-year-old. Alive and healthy. Brother 4: Unknown age. Alive and healthy Brother 5: Unknown age. Alive and healthy Sister: at 70 year old. Unknown etiology. : at age 83 secondary to unknown etiology Son: Sudden at 30 Daughter: 60-year-old. Alive and healthy. Daughter 58-year-old. Alive and healthy. Surgical history: Pacemaker implantation in 2013 Ovarian cancer/hysterectomy at age ?29 Social history: Born and raised in [facility]; moved to the [facility] at age 29. Worked in a [employer] until [place] Patient lives alone since her 2 years ago. Objective Objective: Physical exam Vital signs: Temp 98.2 HR 60 BP 151/68 RR 18 spO2: 98.2 General appearance: Alert and oriented x 3, slightly confused at times, pleasahnt and cooperative, no acute distress HEENT: Atraumatic, PERRLA, Neck: Supple, no JVD, no lymphadenopathy Cardiovascular: regular rate and rhythm with S1 and S2; no rub, murmurs, or gallops; no pitting edema, 2+ pulses Abdominal exam: Mildly distended, normal bowel sounds, no ascites, no caput medusa, no pain to palpation, no hepatomegaly, no splenomegaly, no CVA tenderness Lungs: Clear and equal air movement in bilateral lungs; no wheezing, rales, or rhonchi MSK: 5/5 strength Assessment/Plan Assessment: Assessment: 82-year-old patient with past medical history of hypertension, hyperlipidemia, GERD, pneumonia, diverticulitis, anxiety, ovarian cancer s/p hysterectomy and chemo presents with UTI with mild dehydration. Labs are significant for WBC 18.0, with 95.4% granulocytes, 2.5% lymph, Bands: 10, Na:131, K:4.2, Bicarb: 21, BUN: 15, Creatinine:1.1, Lactic acis:1.9, M.2 UA: Trace ketones, Positive nitrite, leukocyte esterase, elevated urine WBC Plan: Admit overnight and continue IV Ceftriaxone until blood culture and susceptibility results are available
[2018-05-01 15:28] LABS: ABSOLUTE BASOPHIL COUNT 0 /CUMM (0.0-0.2); ABSOLUTE EOSINOPHIL COUNT 0 /CUMM (0.0-0.7); ABSOLUTE GRANULOCYTE CT 15.1 /CUMM (1.4-6.5); ABSOLUTE LYMPH COUNT 0.6 /CUMM (1.2-3.4); ABSOLUTE MONOCYTE COUNT 0.5 /CUMM (0.10-0.60); BASOPHIL % 0.1 % (0.0-2.0); EOSINOPHIL % 0.1 % (0-5); HEMATOCRIT 31.4 % (37-47); MEAN CORPUSCULAR HGB 27.8 PG (27.0-31.0); MEAN CORPUSCULAR VOLUME 81.8 FL (81.0-99.0); MEAN PLATELET VOLUME 6.5 FL (7.4-10.4); PLATELET COUNT 290 /CUMM (130-400); RBC DISTRIBUTION WIDTH 16.8 % (11.5-14.5); RED BLOOD CELL CT 3.84 /CUMM (4.20-5.40); WHITE BLOOD CELL COUNT 16.2 /CUMM (4.8-10.8)
[2018-05-01 16:00] VITALS: BP 148/70
[2018-05-01 23:56] VITALS: BP 190/92
[2018-05-02 06:49] LABS: ABSOLUTE BASOPHIL COUNT 0 /CUMM (0.0-0.2); ABSOLUTE EOSINOPHIL COUNT 0 /CUMM (0.0-0.7); ABSOLUTE LYMPH COUNT 1.1 /CUMM (1.2-3.4); ABSOLUTE MONOCYTE COUNT 0.9 /CUMM (0.10-0.60); BASOPHIL % 0.1 % (0.0-2.0); EOSINOPHIL % 0.2 % (0-5); GRANULOCYTE % 79.6 % (42.2-75.2); MEAN CORPUSCULAR HGB 27.8 PG (27.0-31.0); MEAN CORPUSCULAR HGB CONC 33.3 G/DL (33.0-37.0); MEAN CORPUSCULAR VOLUME 83.3 FL (81.0-99.0); MEAN PLATELET VOLUME 6.5 FL (7.4-10.4); PLATELET COUNT 252 /CUMM (130-400); RBC DISTRIBUTION WIDTH 17.2 % (11.5-14.5); RED BLOOD CELL CT 3.47 /CUMM (4.20-5.40)
--- NOTE | 2018-05-02 08:44 | PN- Student ---
Subjective Subjective: 82-year-old female with PMH of dementia, hypertension, hyperlipidemia, GERD, pneumonia, diverticulitis, anxiety, ovarian cancer s/p hysterectomy and chemo came to the ED 2 days ago by ambulance called by her neighbor with a chief complaint of abdominal pain, vomiting, and passing out. Today, the patient reports doing "fine" with no abdominal pain. She was able tolerate water, gingerale, and dinner. She denies headache, chills, shortness of breath, difficulty or blood while urinating, or changes in her bowel movement. She also denies fever but Tmax 102.5 overnight. PMH: HTN Hyperlipidemia GERD Pneymonia Diverticulitis Anxiety Ovarian cancer s/p hysterectomy and chemo ROS: Constitutional: Complains of mild, intermittent headaches. Denies any weakness, chills, difficulty sleeping, or unexplained weight loss. EENTM: No hearing or visual changes; no difficulty swallowing Cardiovascular: Intermittent and self-limited heart palpitations when she's emotional. Denies chest pain, orthopena, or peripheral edema. Respiratory: Dry cough. Denies any suptum production, hemoptysis or wheezing. : Denies discharge, dysuria, change in frequency, hematuria, hesitation, or urgency MSK: Denies myalgias, arthralgas, or joint pain Psych: Denies depression or hallucinations Family history: Father: at age 70 secondary to aging Mother: at age 90 secondary to aging Brother 1: when he was born. Unknown etiology. Brother 2: Brother 3: 90-year-old. Alive and healthy. Brother 4: Unknown age. Alive and healthy Brother 5: Unknown age. Alive and healthy Sister: at 70 year old. Unknown etiology. : at age 83 secondary to unknown etiology Son: Sudden at 30 Daughter: 60-year-old. Alive and healthy. Daughter 58-year-old. Alive and healthy. Surgical history: Pacemaker implantation in 2013 Ovarian cancer/hysterectomy at age ?29 Social history: Born and raised in [facility]; moved to the [facility] at age 29. Worked in a [employer] until [place] the [place]. Patient lives alone since her 2 years ago. Objective Objective: Vital signs: Temp 98.7 (overnight fever Tmax 102.5) HR 87 BP 172/82 RR 19 spO2: 97 Physical exam General appearance: Alert and oriented to person, not place or time; pleasant and cooperative, no acute distress HEENT: Atraumatic, PERRLA, Neck: Supple, no JVD, no lymphadenopathy Cardiovascular: regular rate and rhythm with S1 and S2; no rub, murmurs, or gallops; no pitting edema, 2+ pulses Abdominal exam: No distention, normal bowel sounds, no ascites, no caput medusa, no pain to palpation, no hepatomegaly, no splenomegaly, no CVA tenderness Lungs: Clear and equal air movement in bilateral lungs; no wheezing, rales, or rhonchi MSK: 5/5 strength Results Results: Laboratory Tests 05/02 05/01 0615 1522 Chemistry Sodium (137 - 145 mmol/L) 129 L Potassium (3.5 - 5.1 mmol/L) 4.6 Chloride (98 - 107 mmol/L) 101 Carbon Dioxide (22 - 30 mmol/L) 25 Anion Gap (5 - 16) 4 L BUN (7 - 17 mg/dL) 16 Creatinine (0.5 - 1.0 mg/dL) 1.2 H Estimated GFR (>60 ml/min) 43 L BUN/Creatinine Ratio (7 - 25 %) 13.3 Hematology CBC w Diff NO MAN DIFF REQ WBC (4.8 - 10.8 /CUMM) 10.0 16.2 H RBC (4.20 - 5.40 /CUMM) 3.47 L 3.84 L Hgb (12.0 - 16.0 G/DL) 9.6 L 10.7 L Hct (37 - 47 %) 29.0 L 31.4 L MCV (81.0 - 99.0 FL) 83.3 81.8 MCH (27.0 - 31.0 PG) 27.8 27.8 MCHC (33.0 - 37.0 G/DL) 33.3 34.0 RDW (11.5 - 14.5 %) 17.2 H 16.8 H Plt Count (130 - 400 /CUMM) 252 290 MPV (7.4 - 10.4 FL) 6.5 L 6.5 L Gran % (42.2 - 75.2 %) 79.6 H 93.0 H Lymphocytes % (20.5 - 51.1 %) 11.4 L 3.6 L Monocytes % (1.7 - 9.3 %) 8.7 3.2 Eosinophils % (0 - 5 %) 0.2 0.1 Basophils % (0.0 - 2.0 %) 0.1 0.1 Absolute Granulocytes (1.4 - 6.5 /CUMM) 8.0 H 15.1 H Absolute Lymphocytes (1.2 - 3.4 /CUMM) 1.1 L 0.6 L Absolute Monocytes (0.10 - 0.60 /CUMM) 0.9 H 0.5 Absolute Eosinophils (0.0 - 0.7 /CUMM) 0 0 Absolute Basophils (0.0 - 0.2 /CUMM) 0 0 Assessment/Plan Assessment: 82-year-old patient with past medical history of dementia, hypertension, hyperlipidemia, GERD, pneumonia, diverticulitis, anxiety, ovarian cancer s/p hysterectomy and chemo presents with UTI with mild dehydration. Physical exam indicates no abnormal focal findings. Fever Tmax of 102.5 overnight. Afebrile now. Labs are significant for: Gran % 79.6, lymph % 11.4, WBC decreased from 16.2 to 10. Na+ 129, Creatinine 1.2 Urine culture: Gram negative rods First venous blood culture: Gram positive cocci Second venous blood culture: Pending Plan: UTI - Continue Ceftriaxone - Second blood culture pending - Continue monitoring blood pressure and increase Norvasc from 5mg to 10mg starting tomorrow. - Give an additional 5 mg of Norvasc today at noon if BP continues to increase
--- NOTE | 2018-05-02 13:11 | PN- Att Addend ---
Attending Addendum Attending Brief Note 82-year-old female with history of hypertension, diverticulitis status post colostomy 2 years ago, ovarian cancer status post hysterectomy and chemotherapy at age 49, bradycardia S/P pacemaker placement who presented to the ER with fever and abdominal pain. General Appearance: Alert, Oriented X3, Cooperative, No Acute Distress Skin: No Rashes Cardiovascular: Regular Rate, Normal S1, Normal S2 Lungs: Clear to Auscultation, Normal Air Movement Abdomen: Normal Bowel Sounds, Soft, No Tenderness Vascular: Pulses Symmetrical Imaging CTA chest/abd/pelvis negative. Labs UA with positive nitrites. WBC trending down, blood cx positive 1/2 GPC and urine culture growing gram neagtive rods. UTI c/w abx. f/u cultures. C/W hydration Hyponatremia with improvement. Tolerating her diet Anticipate discharge in next 24-48 hrs. Admission Lab Results I reviewed the following labs: Laboratory Tests 05/02 05/01 0615 1522 Chemistry Sodium (137 - 145 mmol/L) 129 L Potassium (3.5 - 5.1 mmol/L) 4.6 Chloride (98 - 107 mmol/L) 101 Carbon Dioxide (22 - 30 mmol/L) 25 Anion Gap (5 - 16) 4 L BUN (7 - 17 mg/dL) 16 Creatinine (0.5 - 1.0 mg/dL) 1.2 H Estimated GFR (>60 ml/min) 43 L BUN/Creatinine Ratio (7 - 25 %) 13.3 Magnesium (1.6 - 2.3 mg/dL) 1.9 Hematology CBC w Diff NO MAN DIFF REQ WBC (4.8 - 10.8 /CUMM) 10.0 16.2 H RBC (4.20 - 5.40 /CUMM) 3.47 L 3.84 L Hgb (12.0 - 16.0 G/DL) 9.6 L 10.7 L Hct (37 - 47 %) 29.0 L 31.4 L MCV (81.0 - 99.0 FL) 83.3 81.8 MCH (27.0 - 31.0 PG) 27.8 27.8 MCHC (33.0 - 37.0 G/DL) 33.3 34.0 RDW (11.5 - 14.5 %) 17.2 H 16.8 H Plt Count (130 - 400 /CUMM) 252 290 MPV (7.4 - 10.4 FL) 6.5 L 6.5 L Gran % (42.2 - 75.2 %) 79.6 H 93.0 H Lymphocytes % (20.5 - 51.1 %) 11.4 L 3.6 L Monocytes % (1.7 - 9.3 %) 8.7 3.2 Eosinophils % (0 - 5 %) 0.2 0.1 Basophils % (0.0 - 2.0 %) 0.1 0.1 Absolute Granulocytes (1.4 - 6.5 /CUMM) 8.0 H 15.1 H Absolute Lymphocytes (1.2 - 3.4 /CUMM) 1.1 L 0.6 L Absolute Monocytes (0.10 - 0.60 /CUMM) 0.9 H 0.5 Absolute Eosinophils (0.0 - 0.7 /CUMM) 0 0 Absolute Basophils (0.0 - 0.2 /CUMM) 0 0 Admission Meds I reviewed the following Meds: Current Medications Sig/Gildardo Start time Last Medication Dose Stop Time Status Admin Acetaminophen 1,000 MG Q6 04/30 2359 AC 05/01 (Ofirmev) 2311 Acetaminophen 650 MG Q6P PRN 04/30 2245 AC (Tylenol) Amlodipine Besylate 5 MG DAILY 05/01 0900 AC 05/02 (Norvasc) 0937 Apixaban 5 MG BID 05/01 1313 AC 05/02 (Eliquis) 0937 Atorvastatin Calcium 20 MG QPM 05/01 2100 AC 05/01 (Lipitor) 2032 Ceftriaxone Sodium 1,000 MG DAILY 05/01 0900 AC 05/02 (Rocephin) 0937 Hydralazine HCl 25 MG BID 05/01 0900 AC 05/02 (Apresoline) 0937 Losartan Potassium 50 MG DAILY 05/01 0900 AC 05/02 (Cozaar) 0937 Melatonin 5 MG AT BEDTIME 05/01 0015 AC 05/01 (Melatonin) 203 Metoprolol Succinate 100 MG DAILY 05/01 0900 AC 05/02 (Toprol Xl) 0937 Omeprazole 40 MG DAILY AC 05/01 0700 AC 05/02 (Prilosec) 0618 Sodium Chloride 1,000 ML Q8H 05/02 1245 UNVr (Normal Saline 0.9%) 05/03 0444
--- NOTE | 2018-05-02 14:13 | PN- Housestaff ---
Subjective Follow-up For: UTI Complaints: no complaints Subjective: Patient was eamined bedside, lying down. SHe said she is doing fine, asked if she could go home today. denies any burning urination . Review of Systems Constitutional: Denies: diaphoresis, fever, malaise, weakness, unexplained weight loss. Cardiovascular: Denies: chest pain, edema, orthopena, palpitations, peripheral edema, syncope. Respiratory: Denies: cough, hemoptysis, orthopnea, short of breath, sputum production, stridor, wheezing. Gastrointestinal: Denies: abdominal pain, diarrhea, vomiting. Genitourinary: Denies: discharge, dysuria, frequency, hematuria, hesitation, nocturia, pain. Objective Last 24 Hrs of Vital Signs/I&O Vital Signs Date Time Temp Pulse Resp B/P B/P Pulse O2 O2 Flow FiO2 Mean Ox Delivery Rate 05/02 1812 97.7 56 18 120/60 95 Room Air 05/02 1328 98.0 67 20 142/63 98 05/02 0745 172/82 05/02 0650 Room Air 05/02 0642 98.7 87 19 196/80 97 Room Air 05/02 0618 97.9 05/02 0034 Room Air 05/02 0009 100.3 05/02 0008 100.3 84 18 142/63 05/01 2356 102.5 92 20 190/92 96 Room Air 05/01 2311 102.5 05/01 2309 102.5 92 20 190/92 96 Room Air 05/01 2032 98.4 70 18 144/65 05/01 2025 70 18 144/65 94 Room Air Intake & Output 05/02 1600 05/02 0800 05/02 0000 Intake Total 120 Output Total Balance 120 Intake, Oral 120 Physical Exam General Appearance: Alert, Oriented X3, Cooperative, No Acute Distress Cardiovascular: Regular Rate, No Murmurs Lungs: Clear to Auscultation, Normal Air Movement Abdomen: Normal Bowel Sounds, Soft, No Tenderness, No Hepatospenomegaly, No Masses Neurological: Normal Speech, Strength at 5/5 X4 Ext, Normal Tone, Sensation Intact Extremities: No Clubbing, No Cyanosis, No Edema, Normal Pulses, No Tenderness/ Swelling Current Medications: Current Medications Sig/Gildardo Start time Last Medication Dose Route Stop Time Status Admin Acetaminophen 1,000 MG Q6 04/30 2359 AC 05/02 IV 1759 Acetaminophen 650 MG Q6P PRN 04/30 2245 AC PO Amlodipine Besylate 5 MG DAILY 05/01 09 AC 05/02 PO 0937 Apixaban 5 MG BID 05/01 1313 AC 05/02 PO 0937 Atorvastatin Calcium 20 MG QPM 05/01 2100 AC 05/01 PO 203 Ceftriaxone Sodium 0 .STK-MED ONE 05/02 930 DC .ROUTE Ceftriaxone Sodium 1,000 MG DAILY 05/01 09 AC 05/02 IV 0937 Hydralazine HCl 25 MG BID 05/01 09 AC 05/02 PO 0937 Lorazepam 0.5 MG ONCE ONE 05/01 2300 DC 05/01 IV 05/01 2301 2311 Lorazepam 0 .STK-MED ONE 05/01 2257 DC .ROUTE Losartan Potassium 50 MG DAILY 05/01 900 AC 05/02 PO 0937 Melatonin 0 .STK-MED ONE 05/01 2017 DC PO Melatonin 5 MG AT BEDTIME 05/01 0015 AC 05/01 PO 2031 Metoprolol Succinate 100 MG DAILY 05/01 09 AC 05/02 PO 0937 Omeprazole 40 MG DAILY AC 05/01 0700 AC 05/02 PO 0618 Sodium Chloride 1,000 ML Q8H 05/02 1245 AC 05/02 IV 05/03 0444 1310 Last 24 Hrs of Lab/Martin Results Last 24 Hrs of Labs/Mics: Laboratory Tests 05/02/18614: Anion Gap 4 L, Estimated GFR 43 L, BUN/Creatinine Ratio 13.3, Serum Osmolality 280 L, Magnesium 1.9, CBC w Diff NO MAN DIFF REQ, RBC 3.47 L, MCV 83.3, MCH 27.8, MCHC 33.3, RDW 17.2 H, MPV 6.5 L, Gran % 79.6 H, Lymphocytes % 11.4 L, Monocytes % 8.7, Eosinophils % 0.2, Basophils % 0.1, Absolute Granulocytes 8.0 H, Absolute Lymphocytes 1.1 L, Absolute Monocytes 0.9 H, Absolute Eosinophils 0, Absolute Basophils 0 Microbiology 05/02 630 BLOOD: Blood Culture - RECD 05/02 615 BLOOD: Blood Culture - RECD Assessment/Plan Assessment: 82-year-old woman with past medical history of hypertension, hyperlipidemia, diverticulosis, GERD, pneumonia, ovarian cancer status post removal and chemo, colostomy, anxiety, psoriasis presented to the ED with deceresed PO intake and vomiting. She is alert and oriented to time, place and person. The patient was found to have fever of 102.3 and tachycardia in the ED but has been afebrile since. She reports no symptoms today. Blood cultures growing Gram positive cocci. Urine cultures growing gram negative rods Problems: 1. UTI possibly pyelonephritis 2. Hyponatremia 3. Nausea and Vomiting 1. UTI possibly pyelonephritis -WBC:09146 today. Would recheck tomorrow - f/u urine cx, continue hydration -Continue the patient on Ceftriaxone -Blood cultures Gram positive cocci. Urine cultures gram negative rods -Tyelenol for fever - anticioated discharge tomorrow 2. Hypomagnesemia 1.9 today, resolved 3. Hyponatermia, Hypovolemic -Na is 139 today -Urine osmolality: 255, Urine Na:54, Fena: 1.6 4. Nausea and Vomiting -Zofran as needed DVT prophyalxis: Eliquis Code status: DNR/DNI Problem List: 1. Fever 2. Leukocytosis Pain Ratin Pain Location: none Pain Goal: Remain pain free Pain Plan: teyelenol Tomorrow's Labs & Rationales: cbc, bep
[2018-05-02 18:12] VITALS: BP 120/60
--- NOTE | 2018-05-02 20:10 | Patient Discharge Instructions ---
Discharge Instructions General Discharge Information You were seen/treated for: UTI Watch for these problems: burning, frequent urination, decreased urination, pain while urination Special Instructions: Please drink lots of water/ fluids Please see PCP within 1 week of discharge Diet Continue normal diet: Yes Activity Full Activity/No Limits: Yes Acute Coronary Syndrome Inclusion Criteria At DC or during hospital stay patient has or had the following: ACS DIAGNOSIS No Discharge Core Measures Meds if any: Prescribed or Continued at Discharge Meds if any: NOT Prescribed or Continued at Discharge Congestive Heart Failure Inclusion Criteria At DC or during hospital stay patient has or had the following: CHF DIAGNOSIS No Discharge Core Measures Meds if any: Prescribed or Continued at Discharge Meds if any: NOT Prescribed or Continued at Discharge Cerebrovascular accident Inclusion Criteria At DC or during hospital stay patient has or had the following: CVA/TIA Diagnosis No Discharge Core Measures Meds if any: Prescribed or Continued at Discharge Meds if any: NOT Prescribed or Continued at Discharge Venous thromboembolism Inclusion Criteria VTE Diagnosis No VTE Type NONE VTE Confirmed by (Test) NONE Discharge Core Measures - Per Current guidelines, there needs to be overlap - treatment for the first 5 days of Warfarin therapy. - If discharged on Warfarin prior to 5 days of - overlap therapy, the patient will need to be - assessed for post discharge needs including - *Post discharge parental anticoagulation - *Warfarin and/or parental anticoagulation education - *Follow up date to check INR post discharge Meds if any: Prescribed or Continued at Discharge Note: Overlap Therapy is Warfarin and Anticoagulant Meds if any: NOT Prescribed or Continued at Discharge
[2018-05-02 21:36] VITALS: BP 141/68
[2018-05-03 05:47] VITALS: BP 138/80
--- NOTE | 2018-05-03 07:28 | PN- Housestaff ---
David Mar 05/03/18 0728: Subjective Follow-up For: UTI Subjective: Patient is doing well no complaints of any dysuria or frequent urination or any other symptoms of UTI. There is no fever. The patient states that she is wobbly and would like to stay today. Wants to consider physical therapy for deconditioning and would like to plan about going home Review of Systems Constitutional: Reports: no symptoms. Objective Last 24 Hrs of Vital Signs/I&O Vital Signs Date Time Temp Pulse Resp B/P B/P Pulse O2 O2 Flow FiO2 Mean Ox Delivery Rate 05/03 0952 59 108/58 05/03 0951 59 108/58 05/03 0950 59 108/58 05/03 0547 98.3 63 20 138/80 97 Room Air 05/02 2215 60 141/68 05/02 2136 98.4 60 18 141/68 95 Room Air 05/02 1812 97.7 56 18 120/60 95 Room Air 05/02 1328 98.0 67 20 142/63 98 Intake & Output 05/03 1600 05/03 0800 05/03 0000 Intake Total 1120 420 Output Total 400 250 Balance 720 170 Intake, IV 1000 300 Intake, Oral 120 120 Output, Urine 400 250 Patient 153 lb Weight Physical Exam General Appearance: Alert, Oriented X3, Cooperative, No Acute Distress Cardiovascular: Regular Rate, No Murmurs Lungs: Clear to Auscultation, Normal Air Movement Abdomen: Normal Bowel Sounds, Soft, No Tenderness, No Hepatospenomegaly, No Masses Neurological: Normal Speech, Strength at 5/5 X4 Ext, Normal Tone, Sensation Intact Extremities: No Clubbing, No Cyanosis, No Edema, Normal Pulses, No Tenderness/ Swelling Current Medications: Current Medications Sig/Gildardo Start time Last Medication Dose Route Stop Time Status Admin Acetaminophen 1,000 MG Q6 04/30 2359 DC 05/02 IV 2323 Acetaminophen 650 MG Q6P PRN 04/30 2245 AC 05/03 PO 1509 Amlodipine Besylate 5 MG DAILY 05/01 0900 AC 05/03 PO 0952 Apixaban 5 MG BID 05/01 1313 AC 05/03 PO 0952 Atorvastatin Calcium 20 MG QPM 05/01 2100 AC 05/02 PO 2216 Ceftriaxone Sodium 1,000 MG DAILY 05/01 09 AC 05/03 IV 0951 Hydralazine HCl 25 MG BID 05/01 09 AC 05/03 PO 0951 Losartan Potassium 50 MG DAILY 05/01 09 AC 05/03 PO 0950 Melatonin 5 MG AT BEDTIME 05/01 0015 AC 05/02 PO 2216 Metoprolol Succinate 100 MG DAILY 05/01 09 AC 05/03 PO 1342 Omeprazole 40 MG DAILY AC 05/01 0700 AC 05/03 PO 0519 Patient Medication 1 ED ONE ONE 05/03 1530 UT Teaching ED 05/03 1531 Sodium Chloride 1,000 ML Q8H 05/02 1245 DC 05/02 IV 05/03 0444 2000 Last 24 Hrs of Lab/Martin Results Last 24 Hrs of Labs/Mics: Laboratory Tests 05/03/18727: Anion Gap 7, Estimated GFR 53 L, BUN/Creatinine Ratio 13.0, CBC w Diff NO MAN DIFF REQ, RBC 3.48 L, MCV 81.0, MCH 27.8, MCHC 34.3, RDW 17.4 H, MPV 6.9 L, Gran % 73.6, Lymphocytes % 13.8 L, Monocytes % 9.8 H, Eosinophils % 2.5, Basophils % 0.3, Absolute Granulocytes 5.7, Absolute Lymphocytes 1.1 L, Absolute Monocytes 0.8 H, Absolute Eosinophils 0.2, Absolute Basophils 0 Assessment/Plan Assessment: 82-year-old woman with past medical history of hypertension, hyperlipidemia, diverticulosis, GERD, pneumonia, ovarian cancer status post removal and chemo, colostomy, anxiety, psoriasis presented to the ED with deceresed PO intake and vomiting. She is alert and oriented to time, place and person. The patient was found to have fever of 102.3 and tachycardia in the ED but has been afebrile since. She reports no symptoms today. Blood cultures growing Gram positive cocci. Urine cultures growing gram negative rods Problems: 1. UTI 2. Hyponatremia 3. Nausea and Vomiting -WBC: Normal today - f/u urine cx, shows E. coli -Continue the patient on Ceftriaxone, day 3, DC CERFTIAXON -Fevers resolved, nausea vomiting resolved, Physical therapy will be arranged if the patient is able to ambulate on her own she can go home. DVT prophyalxis: Eliquis Code status: DNR/DNI Problem List: 1. UTI (urinary tract infection) Pain Ratin Pain Location: none Pain Goal: Remain pain free Pain Plan: none Tomorrow's Labs & Rationales: none Vika,Costaalice 05/03/18 1327: Attending MD Review Statement Attending Statement Attending MD Statement: examined this patient, discuss w/resident/PA/MEDICAL TRANSLATOR, agreed w/resident/PA/MEDICAL TRANSLATOR, discussed with family, reviewed EMR data (avail), discussed with nursing, discussed with case mgmt, reviewed images, amended to note Attending Assessment/Plan: Agree with above and patient can be discharged in satisfactroy condition. Follow up with PCP in 1 week of discharge.
[2018-05-03 08:42] LABS: ABSOLUTE BASOPHIL COUNT 0 /CUMM (0.0-0.2); ABSOLUTE EOSINOPHIL COUNT 0.2 /CUMM (0.0-0.7); ABSOLUTE GRANULOCYTE CT 5.7 /CUMM (1.4-6.5); ABSOLUTE LYMPH COUNT 1.1 /CUMM (1.2-3.4); ABSOLUTE MONOCYTE COUNT 0.8 /CUMM (0.10-0.60); BASOPHIL % 0.3 % (0.0-2.0); EOSINOPHIL % 2.5 % (0-5); GRANULOCYTE % 73.6 % (42.2-75.2); HEMATOCRIT 28.2 % (37-47); MEAN CORPUSCULAR HGB 27.8 PG (27.0-31.0); MEAN CORPUSCULAR HGB CONC 34.3 G/DL (33.0-37.0); MEAN PLATELET VOLUME 6.9 FL (7.4-10.4); PLATELET COUNT 227 /CUMM (130-400); RBC DISTRIBUTION WIDTH 17.4 % (11.5-14.5); RED BLOOD CELL CT 3.48 /CUMM (4.20-5.40); WHITE BLOOD CELL COUNT 7.8 /CUMM (4.8-10.8)
--- NOTE | 2018-05-03 13:17 | PN- Student ---
Subjective Subjective: 82-year-old female with PMH of dementia, hypertension, hyperlipidemia, GERD, pneumonia, diverticulitis, anxiety, ovarian cancer s/p hysterectomy and chemo came to the ED 3 days ago by ambulance called by her neighbor with a chief complaint of abdominal pain, vomiting, and passing out. Today, the patient reports doing better with no vomiting or abdominal pain. She was able tolerate water and meals. She denies fever, headache, chills, shortness of breath, difficulty or blood while urinating, or changes in her bowel movement. No other complaints today. PMH: HTN Hyperlipidemia GERD Pneymonia Diverticulitis Anxiety Ovarian cancer s/p hysterectomy and chemo ROS: Constitutional: Denies headache, weakness, chills, difficulty sleeping, or unexplained weight loss. EENTM: No hearing or visual changes; no difficulty swallowing Cardiovascular: Intermittent and self-limited heart palpitations when she's emotional. Denies chest pain, orthopena, or peripheral edema. Abdominal: See HPI Respiratory: Dry cough. Denies any suptum production, hemoptysis or wheezing. : Denies discharge, dysuria, change in frequency, hematuria, hesitation, or urgency MSK: Denies myalgias, arthralgas, or joint pain Psych: Denies depression or hallucinations Family history: Father: at age 70 secondary to aging Mother: at age 90 secondary to aging Brother 1: when he was born. Unknown etiology. Brother 2: Brother 3: 90-year-old. Alive and healthy. Brother 4: Unknown age. Alive and healthy Brother 5: Unknown age. Alive and healthy Sister: at 70 year old. Unknown etiology. : at age 83 secondary to unknown etiology Son: Sudden at 30 Daughter: 60-year-old. Alive and healthy. Daughter 58-year-old. Alive and healthy. Surgical history: Pacemaker implantation in 2013 Ovarian cancer/hysterectomy at age ?29 Social history: Born and raised in [facility]; moved to the [facility] at age 29. Worked in a [employer] until immigrating the [facility]. Patient lives alone since her 2 years ago. Objective Objective: Vital Signs Date Time Temp Pulse Resp B/P B/P Pulse O2 O2 Flow FiO2 Mean Ox Delivery Rate 05/03 0952 59 108/58 05/03 0951 59 108/58 05/03 0950 59 108/58 05/03 0547 98.3 63 20 138/80 97 Room Air 05/02 2215 60 141/68 05/02 2136 98.4 60 18 141/68 95 Room Air 05/02 1812 97.7 56 18 120/60 95 Room Air 05/02 1328 98.0 67 20 142/63 98 Physical exam General appearance: Alert and oriented x 3, no acute distress HEENT: Atraumatic, PERRLA, Neck: Supple, no JVD, no lymphadenopathy Cardiovascular: regular rate and rhythm with S1 and S2; no rub, murmurs, or gallops; no pitting edema, 2+ pulses Abdominal exam: No distention, normal bowel sounds, no ascites, no caput medusa, no pain to palpation, no hepatomegaly, no splenomegaly, no CVA tenderness Lungs: Clear and equal air movement in bilateral lungs; no wheezing, rales, or rhonchi MSK: 5/5 strength Results Results: Laboratory Tests 05/03/18 0728: Anion Gap 7, Estimated GFR 53 L, BUN/Creatinine Ratio 13.0, CBC w Diff NO MAN DIFF REQ, RBC 3.48 L, MCV 81.0, MCH 27.8, MCHC 34.3, RDW 17.4 H, MPV 6.9 L, Gran % 73.6, Lymphocytes % 13.8 L, Monocytes % 9.8 H, Eosinophils % 2.5, Basophils % 0.3, Absolute Granulocytes 5.7, Absolute Lymphocytes 1.1 L, Absolute Monocytes 0.8 H, Absolute Eosinophils 0.2, Absolute Basophils 0 05/02/18 0615: Anion Gap 4 L, Estimated GFR 43 L, BUN/Creatinine Ratio 13.3, Serum Osmolality 280 L, Magnesium 1.9, CBC w Diff NO MAN DIFF REQ, RBC 3.47 L, MCV 83.3, MCH 27.8, MCHC 33.3, RDW 17.2 H, MPV 6.5 L, Gran % 79.6 H, Lymphocytes % 11.4 L, Monocytes % 8.7, Eosinophils % 0.2, Basophils % 0.1, Absolute Granulocytes 8.0 H, Absolute Lymphocytes 1.1 L, Absolute Monocytes 0.9 H, Absolute Eosinophils 0, Absolute Basophils 0 05/01/18 1522: RBC 3.84 L, MCV 81.8, MCH 27.8, MCHC 34.0, RDW 16.8 H, MPV 6.5 L, Gran % 93.0 H, Lymphocytes % 3.6 L, Monocytes % 3.2, Eosinophils % 0.1, Basophils % 0.1, Absolute Granulocytes 15.1 H, Absolute Lymphocytes 0.6 L, Absolute Monocytes 0.5, Absolute Eosinophils 0, Absolute Basophils 0 05/01/18 0930: CBC w Diff MAN DIFF ORDERED, RBC 3.82 L, MCV 81.6, MCH 27.6, MCHC 33.8, RDW 17.2 H, MPV 6.4 L, Gran % 95.4 H, Lymphocytes % 2.5 L, Monocytes % 2.0, Eosinophils % 0.1, Basophils % 0, Absolute Granulocytes 17.2 H, Segmented Neutrophils 91 H, Band Neutrophils 2, Absolute Lymphocytes 0.5 L, Lymphocytes 4 L, Monocytes 3, Absolute Monocytes 0.4, Absolute Eosinophils 0, Absolute Basophils 0, Platelet Estimate ADEQUATE, Poikilocytosis FEW, Anisocytosis 1+, Ovalocytes FEW 05/01/18 0604: Anion Gap 7, Estimated GFR 47 L, BUN/Creatinine Ratio 15.5 05/01/18 0213: Urine Osmolality 255 L, Ur Random Creatinine 29.3, Ur Random Sodium 54, Ur Random Potassium 18.9, Fraction Sodium Excret 1.6 H Microbiology 05/02 630 BLOOD: Blood Culture - RES 05/02 615 BLOOD: Blood Culture - RES Assessment/Plan Assessment: 82-year-old patient with past medical history of dementia, hypertension, hyperlipidemia, GERD, pneumonia, diverticulitis, anxiety, ovarian cancer s/p hysterectomy and chemo presents with UTI with mild dehydration. Physical exam indicates no abnormal focal findings. Afebrile. Stable blood pressure over the past 24 hours. Patient is able to ambulate independently. She is ready for discharge today. Plan: UTI - Discontinue Ceftriaxone IV - Submit W10 for discharge - Follow-up if new/spiking fever, urinary changes, or concerns for well-being.
[2018-05-03 14:40] VITALS: BP 108/58
== END 2018-05-03 17:40 | DRG 690 ==
LOC: ERH 11:26 → 2NB 16:28 → ERHI 16:28 → ENRESERV 05-02 16:40 → 2NB 05-02 16:59 → ENTRNSPT 05-02 17:16 → EDTRNSPT 05-02 17:23 → EDTRNSPTSTS 05-02 17:23 → CMPTRNSPT 05-02 17:44 → ENPENDDIS 05-03 14:17 → 2NB 05-03 17:40
PROVIDERS: Hospitalist; Physician Assistant Medical; Student in an Organized Health Care Education/Training Program
DX: N39.0 Urinary tract infection, site not specified (principal); E87.1 Hypo-osmolality and hyponatremia; E86.0 Dehydration; E83.42 Hypomagnesemia; I10 Essential (primary) hypertension; E78.5 Hyperlipidemia, unspecified; K21.9 Gastro-esophageal reflux disease without esophagitis; Z93.3 Colostomy status; F41.9 Anxiety disorder, unspecified; Z95.0 Presence of cardiac pacemaker; L40.9 Psoriasis, unspecified; Z66 Do not resuscitate; Z85.43 Personal history of malignant neoplasm of ovary; Z92.21 Personal history of antineoplastic chemotherapy; Z90.710 Acquired absence of both cervix and uterus
CPT/HCPCS: 2NBSP; 84133; 84300; ERO; 36415; 71045; 74177; 81001; 82436; 82570; 87040; 87071; 87086; 93005; 93010; 97116-GO; 97161-GP; 97530-GO; J0131; J0696; J2405; J3370; J7040; J7508